=== PATIENT | male | born 1950 | race Caucasian/White ===

== ENCOUNTER 2017-08-08 18:59 | Emergency (ER) | payer OTHER ==
[~2017-08-08] VITALS: Ht 180.3 cm; Wt 80.0 kg
[~2017-08-08 18:59] MED LIST: CIPR500T4 PO; GLUC10TA3 PO; LISI10TA PO; MELO7.5T PO; METF-324 PO; OMPR20CCR PO; SIMV20 PO; TRAZ50TA4 PO
[2017-08-08 19:04] VITALS: BP 170/86; PULSE 87; RESP 16; TEMP 97.4; O2SAT 98
[2017-08-08] MEDS ORDERED: TRAZ50TA12 PO (20:14)
[2017-08-08] MEDS ORDERED: GLIP10TA6 PO (20:14)
[2017-08-08] MEDS ORDERED: SIMV20TA PO (20:14)
[2017-08-08] MEDS ORDERED: OMEP20TA PO (20:14)
[2017-08-08] MEDS ORDERED: LISI10TA PO (20:14)
[2017-08-08] MEDS ORDERED: METF-382 PO (20:14)
[2017-08-08] MEDS ORDERED: MOBI7.5T PO (20:14)
--- NOTE | 2017-08-08 20:30 | PD ---
HPI Chief Complaint: Hypertension Time Seen by Provider: 20:15 Travel History International Travel<30 days: No Contact w/Intl Traveler<30days: No Traveled to known affect area: No History of Present Illness HPI 67-year-old male with history of hypertension presents to the emergency department today for evaluation of hypertension. Patient states he did not take his medications morning. He slept all day and when he woke up at 6 PM, his blood pressure was with systolic greater than 200. He felt like he should come to the emergency department for evaluation of this. He did take 10 mg of Valium prior to arrival. At this time he denies any chest or tightness. No difficulty breathing. No headache, nausea, vomiting. He has no other symptoms to report. PFSH Past Medical History Anxiety: Yes Heart Rhythm Problems: Yes (HEART MURMUR (DX AT 14YO)) High Cholesterol: Yes Diabetes: Yes (TYPE II) Patient Takes Glucophage: No Diminished Hearing: No GERD: Yes Genitourinary: Yes Hypertension: Yes Musculoskeletal: Yes Respiratory: Yes (HX PNEUMONIA/ 90% SINUS BLOCKAGE) Pneumonia: Yes Sleep Apnea: Yes PNEUMOCCOCAL Vaccine (Year): 2 Past Surgical History Tonsillectomy: Yes Social History Alcohol Use: Yes (OCC) Tobacco Use: Yes (PPD) Substance Use: No Allergies-Medications (Allergen,Severity, Reaction): Coded Allergies: amitriptyline (Unverified Allergy, Severe, AMS, 08/08/17) cephalexin (Unverified Allergy, Severe, HIVES, 08/08/17) penicillin G (Unverified Allergy, Severe, LOC, 08/08/17) Reported Meds & Prescriptions Reported Meds & Active Scripts Active Reported Trazodone (Trazodone HCl) 50 Mg Tab 25 Mg PO DAILY Simvastatin 20 Mg Tab 20 Mg PO HS Omeprazole 20 Mg Tab 20 Mg PO DAILY Metformin ER (Metformin HCl) 1,000 Mg Omer 1,000 Mg PO BID With evening meal Mobic (Meloxicam) 7.5 Mg Tab 7.5 Mg PO DAILY Lisinopril-Hctz 10-12.5 Mg Tab 1 Tab PO DAILY Glipizide 10 Mg Tab 10 Mg PO BIDAC Take 30 minutes before a meal Review of Systems Except as stated in HPI: all other systems reviewed are Neg Physical Exam Narrative GENERAL: Well-nourished, well-developed male patient in no acute distress SKIN: Focused skin assessment warm/dry. HEAD: Normocephalic. EYES: No scleral icterus. No injection or drainage. NECK: Supple, trachea midline. No JVD or lymphadenopathy. CARDIOVASCULAR: Regular rate and rhythm 2/6 systolic murmur. RESPIRATORY: Breath sounds equal bilaterally. No accessory muscle use. GASTROINTESTINAL: Abdomen soft, non-tender, nondistended. MUSCULOSKELETAL: No cyanosis, or edema. BACK: Nontender without obvious deformity. No CVA tenderness. Data Data Last Documented VS Vital Signs Date Time Temp Pulse Resp B/P (MAP) Pulse Ox O2 Delivery O2 Flow Rate FiO2 08/08/17 20:45 08/08/17 19:04 97.4 87 16 98 Room Air MDM Medical Decision Making Medical Screen Exam Complete: Yes Emergency Medical Condition: Yes Medical Record Reviewed: Yes Differential Diagnosis Hypertension versus medication noncompliance versus kidney disease versus normal exam Narrative Course 67-year-old male presents to emergency department for evaluation of hypertension. Patient is hypertensive here, however it is not concerning. He is completely asymptomatic. He did not take his medication this morning which is likely the cause of his increase in pressure. He did take his dose just prior to arrival. Educated the patient on taking his medication as prescribed. I encouraged him to follow-up with his primary care provider. He agrees with this plan of care. Diagnosis Primary Impression: Hypertension Qualified Codes: I10 - Essential (primary) hypertension Referrals: Primary Care Physician Patient Instructions: Chronic Hypertension (DC), General Instructions Additional Instructions: It is important that you do not miss your medication as prescribed at 5 follow- up with a primary care provider Return immediately with any acute worsening of symptoms Med/Other Pt SpecificInfo: No Change to Meds Disposition: 01 DISCHARGE HOME Condition: Stable CalderonGini torres HEBERT Aug 08, 2017 20:30
== END 2017-08-08 20:48 | disposition home or self-care (01) ==
LOC: NEPK 18:59
DX: I10 Essential (primary) hypertension (principal); E11.9 Type 2 diabetes mellitus without complications; E78.00 Pure hypercholesterolemia, unspecified; G47.30 Sleep apnea, unspecified; Z72.0 Tobacco use; Z79.84 Long term (current) use of oral hypoglycemic drugs; Z86.79 Personal history of other diseases of the circulatory system; Z86.59 Personal history of other mental and behavioral disorders; Z87.19 Personal history of other diseases of the digestive system; Z87.448 Personal history of other diseases of urinary system; Z87.39 Personal history of other diseases of the musculoskeletal system and connective tissue; Z87.09 Personal history of other diseases of the respiratory system
CPT/HCPCS: 99281

== ENCOUNTER 2018-02-16 13:12 | Emergency (ER) | payer OTHER ==
[~2018-02-16] VITALS: Ht 180.3 cm; Wt 80.0 kg
[~2018-02-16 13:12] MED LIST changes: -CIPR500T4 PO; +GLIP10TA6 PO; -GLUC10TA3 PO; -MELO7.5T PO; -METF-324 PO; +METF-382 PO; +MOBI7.5T PO; +OMEP20TA93 PO; -OMPR20CCR PO; -SIMV20 PO; +SIMV20TA PO; +TRAZ50TA12 PO; -TRAZ50TA4 PO
[2018-02-16 13:20] VITALS: BP 169/74; PULSE 74; RESP 16; TEMP 97.3; O2SAT 98
--- NOTE | 2018-02-16 15:14 | PD ---
HPI Chief Complaint: Pain: Acute or Chronic Time Seen by Provider: 15:09 Travel History International Travel<30 days: No Contact w/Intl Traveler<30days: No Traveled to known affect area: No History of Present Illness HPI 68-year-old male with PMH of DM presents to the ED for evaluation of 5 day history of right leg pain. Sudden onset while the patient was standing. He can identify no acute injury or recent overuse. Pain is rated 6/10, described as throbbing on the inner and anterior aspect of the leg. No alleviating or exacerbating factors reported. Patient denies history of blood clots. He does not take blood thinners. He is followed by the [facility] Past Medical History Anxiety: Yes Heart Rhythm Problems: Yes (HEART MURMUR (DX AT 14YO)) High Cholesterol: Yes Diabetes: Yes Diminished Hearing: No GERD: Yes Genitourinary: Yes Hypertension: Yes Musculoskeletal: Yes Respiratory: Yes (HX PNEUMONIA/ 90% SINUS BLOCKAGE) Pneumonia: Yes Sleep Apnea: Yes PNEUMOCCOCAL Vaccine (Year): 2 Past Surgical History Tonsillectomy: Yes Social History Alcohol Use: Yes (OCC) Tobacco Use: Yes (PPD) Substance Use: No Allergies-Medications (Allergen,Severity, Reaction): Coded Allergies: amitriptyline (Unverified Allergy, Severe, AMS, 08/08/17) cephalexin (Unverified Allergy, Severe, HIVES, 08/08/17) penicillin G (Unverified Allergy, Severe, LOC, 08/08/17) Reported Meds & Prescriptions Reported Meds & Active Scripts Active Reported Trazodone (Trazodone HCl) 50 Mg Tab 25 Mg PO DAILY Simvastatin 20 Mg Tab 20 Mg PO HS Omeprazole 20 Mg Tab 20 Mg PO DAILY Metformin ER (Metformin HCl) 1,000 Mg Omer 1,000 Mg PO BID With evening meal Mobic (Meloxicam) 7.5 Mg Tab 7.5 Mg PO DAILY Lisinopril-Hctz 10-12.5 Mg Tab 1 Tab PO DAILY Glipizide 10 Mg Tab 10 Mg PO BIDAC Take 30 minutes before a meal Review of Systems Except as stated in HPI: all other systems reviewed are Neg Physical Exam Narrative GENERAL: Well-nourished, well-developed white male in no acute distress. SKIN: Focused skin assessment warm/dry. HEAD: Normocephalic. EYES: No scleral icterus. No injection or drainage. Pupils pinpoint bilaterally. NECK: Supple, trachea midline. No JVD or lymphadenopathy. CARDIOVASCULAR: Regular rate and rhythm without murmurs, gallops, or rubs. RESPIRATORY: Breath sounds equal bilaterally. No accessory muscle use. GASTROINTESTINAL: Abdomen soft, non-tender, nondistended. MUSCULOSKELETAL: No cyanosis, or edema. FOCUSED RIGHT LOWER EXTREMITY EXAM: 2+ DP pulse. Homans sign positive. Multiple varicose veins noted in the area of tenderness. Tender to palpation on the inner and posterior aspect of the thigh. No ropey induration noted. Patient retains full, active, painless ROM of the extremity. Neurovascularly intact distally. BACK: Nontender without obvious deformity. No CVA tenderness. Data Data Last Documented VS Vital Signs Date Time Temp Pulse Resp B/P (MAP) Pulse Ox O2 Delivery O2 Flow Rate FiO2 02/16/18 13:20 97.3 74 16 169/74 (105) 98 Orders Orders Ice/Cold Pack (02/16/18 15:06) Us Leg Venous Doppler (02/16/18 15:12) Tramadol (Ultram) (02/16/18 17:00) Ed Discharge Order (02/16/18 17:16) [facility] Medical Decision Making Medical Screen Exam Complete: Yes Emergency Medical Condition: Yes Differential Diagnosis Thrombophlebitis versus DVT versus muscle strain versus musculoskeletal pain versus other Narrative Course 68-year-old male with PMH of DM presents to the ED for evaluation of 5 day history of right leg pain. Sudden onset while the patient was standing. He can identify no acute injury or recent overuse. Pain is rated 6/10, described as throbbing on the inner and anterior aspect of the leg. Patient denies history of blood clots. He does not take blood thinners. [facility]. Focused exam of the right lower extremity reveals 2+ DP pulse. Homans sign positive. Tender to palpation on the inner and posterior aspect of the thigh. Multiple varicose veins noted. No ropey induration noted. Patient retains full, active, painless ROM of the extremity. Neurovascularly intact distally. Ultrasound of the legs reveals no evidence of DVT. On recheck the patient states that his chronic back pain is acting up and requests pain medications. I offered him tramadol, he refused. I suspect this is thrombophlebitis, less likely a muscle strain. Either way, I feel the patient is safe [facility]. He is stable and discharged home. Diagnosis Primary Impression: Musculoskeletal pain of right lower extremity Referrals: Orthopedist Additional Instructions: Rest, ice, elevate the extremity. Apply ice no longer than 10-15 minutes per hour a few times a day. OTC pain medications as prescribed on the label, as needed for pain. Return to normal, gentle activity as tolerated. No running, jumping activities for the next few weeks. Follow up with orthopedist. They may recommend outpatient MRI studies. Return to the ED for any urgent or emergent medical condition. Disposition: 01 DISCHARGE HOME Condition: Stable Laurel Perez Feb 16, 2018 15:14
[2018-02-16] MEDS ORDERED: traMADol HCL 50 MG TAB PO ONE (17:00)
--- NOTE | 2018-02-16 17:12 | RADRPT ---
EXAM DATE/TIME: 02/16/2018 15:50 [facility] COMPARISON: No previous studies available for comparison. INDICATIONS : Right leg pain. MEDICAL HISTORY : Hypertension. Hypercholesterolemia. Gastroesophageal reflux disease. Syncope. Heart murmur. Diabet es. Anxiety. Prostatitis. Chronic back pain. SURGICAL HISTORY : Tonsillectomy. Right knee cartilage surgery. ENCOUNTER: Initial ACUITY: 4 - 6 days PAIN SCORE: 3/10 LOCATION: Right leg. TECHNIQUE: Venous ultrasound of the leg was performed from the inguinal ligament to the proximal calf. Real-janet e, color Doppler and spectral tracing, compression and augmentation techniques were used. FINDINGS: There is normal compressibility of the deep venous system from the inguinal region to the proximal ca lf. No echogenic clot is seen in the lumen of the common femoral, femoral, popliteal, and posterior tibial veins. There is a normal response of the venous system to proximal and distal augmentation an d respiration. CONCLUSION: 1. No DVT identified within the right lower extremity. Gwyn Davila MD on February 16, 2018 at 17:09 Board Certified Radiologist. This report was verified electronically.
== END 2018-02-16 17:30 | disposition home or self-care (01) ==
LOC: NEPK 13:12
DX: M79.604 Pain in right leg (principal); G89.29 Other chronic pain; M54.9 Dorsalgia, unspecified; I10 Essential (primary) hypertension; E78.00 Pure hypercholesterolemia, unspecified; E11.9 Type 2 diabetes mellitus without complications; F41.9 Anxiety disorder, unspecified; F17.210 Nicotine dependence, cigarettes, uncomplicated; Z88.0 Allergy status to penicillin; Z79.84 Long term (current) use of oral hypoglycemic drugs; Z79.899 Other long term (current) drug therapy
CPT/HCPCS: 93971; 99284

== ENCOUNTER 2018-02-23 15:16 | Emergency (ER) | payer OTHER ==
[2018-02-23 15:39] VITALS: BP 171/74; PULSE 77; RESP 18; TEMP 98.7; O2SAT 97
--- NOTE | 2018-02-23 16:06 | PD ---
HPI Chief Complaint: Pain: Acute or Chronic Time Seen by Provider: 15:53 Travel History International Travel<30 days: No Contact w/Intl Traveler<30days: No Traveled to known affect area: No History of Present Illness HPI This is a 68-year-old male who presents for evaluation of lower back pain as well as right leg pain. He reports that he has chronic back pain from a "permanent back injury" several years ago. He does not recall specifically what he was diagnosed with. He reports that he follows at the [facility] and he is not currently prescribed any pain medicine. He denies any acute injury to his back. He reports that the pain is the way that it has been for years. It is an aching pain in his lower back that is worse with movement. Denies any bowel or bladder incontinence or saddle anesthesia, abdominal pain, flank pain, testicular scrotal pain. In addition the patient is complaining of right lower leg pain which started 10 days ago. He does not recall any specific injury. The pain is primarily in the right knee, tibia/fibular region and it is worse when walking. He was seen here about this issue 1 week ago and had an ultrasound of the right lower extremity which was negative. The pain has persisted. He reports that he has been using Percocet from a friend which he has now run out of. He is not using any other medication for symptom relief. He has no other complaints at this time. PFSH Past Medical History Anxiety: Yes Heart Rhythm Problems: Yes (HEART MURMUR (DX AT 14YO)) High Cholesterol: Yes Diabetes: Yes Diminished Hearing: No GERD: Yes Genitourinary: Yes Hypertension: Yes Musculoskeletal: Yes Respiratory: Yes (HX PNEUMONIA/ 90% SINUS BLOCKAGE) Pneumonia: Yes Sleep Apnea: Yes PNEUMOCCOCAL Vaccine (Year): 2 Past Surgical History Tonsillectomy: Yes Social History Alcohol Use: Yes (OCC) Tobacco Use: Yes (PPD) Substance Use: No Allergies-Medications (Allergen,Severity, Reaction): Coded Allergies: amitriptyline (Unverified Allergy, Severe, AMS, 02/23/18) cephalexin (Unverified Allergy, Severe, HIVES, 02/23/18) penicillin G (Unverified Allergy, Severe, LOC, 02/23/18) Reported Meds & Prescriptions Reported Meds & Active Scripts Active Baclofen 10 Mg Tab 10 Mg PO Q8HR [address] (Diclofenac Sodium) 75 Mg Tabdr 75 Mg PO BID 10 Days Reported Simvastatin 20 Mg Tab 20 Mg PO HS Omeprazole 20 Mg Tab 20 Mg PO DAILY Metformin ER (Metformin HCl) 1,000 Mg Omer 1,000 Mg PO BID With evening meal Lisinopril-Hctz 10-12.5 Mg Tab 1 Tab PO DAILY Glipizide 10 Mg Tab 10 Mg PO BIDAC Take 30 minutes before a meal Review of Systems Except as stated in HPI: all other systems reviewed are Neg Physical Exam Narrative GENERAL: Well-developed well-nourished male in no acute distress. He is noted to be ambulatory and standing during his hospital stay several times and seems to prefer it to lying down. SKIN: Warm and dry. There is some ecchymosis noted to the right foot. HEAD: Atraumatic. Normocephalic. CARDIOVASCULAR: Regular rate and rhythm. No murmur appreciated. RESPIRATORY: No accessory muscle use. Clear to auscultation. Breath sounds equal bilaterally. GASTROINTESTINAL: Abdomen soft, non-tender, nondistended. Hepatic and splenic margins not palpable. MUSCULOSKELETAL: Skin as noted above. There is some tenderness to palpation of the right calf, fibula, ankle. There is pain with dorsi and plantar flexion of the right ankle. There is no tenderness to palpation the right knee joint. The patient has no pain with flexion and extension of the right knee joint. There is no obvious laxity on anterior posterior stress of the right knee. The Achilles tendon is intact and nontender. 2+ dorsalis pedis pulse bilaterally. NEUROLOGICAL: Awake and alert. No obvious cranial nerve deficits. Motor grossly within normal limits. Normal speech. Data Data Last Documented VS Vital Signs Date Time Temp Pulse Resp B/P (MAP) Pulse Ox O2 Delivery O2 Flow Rate FiO2 02/23/18 15:39 98.7 77 18 171/74 (106) 97 Orders Orders Tibia/Fibula (Ap/Lat) (02/23/18 ) Foot, Complete ([id number]) (02/23/18 ) Ed Discharge Order (02/23/18 16:55) MDM Medical Decision Making Medical Screen Exam Complete: Yes Emergency Medical Condition: Yes Medical Record Reviewed: Yes Differential Diagnosis Right ankle sprain, calf tear, fibular fracture Chronic lower back pain, degenerative disc disease, spinal stenosis, herniated nucleus pulposus, compression fracture Narrative Course Because of the finding of ecchymosis on the right foot, right tibia-fibula and foot x-rays have been ordered. Reassuringly he had an ultrasound of the right lower extremity which was negative for DVT 1 week ago. X-ray imaging of the right tibia-fibula and right foot have been reviewed and found to be unremarkable. The patient has been ambulatory for 75% of his hospital stay. He will be discharged with a short course of NSAIDs and muscle relaxants. He is encouraged to follow-up with his primary care physician to discuss pain management referral for his chronic lower back pain. He seems agreeable to this plan. Diagnosis Primary Impression: Chronic lower back pain Additional Impression: Right leg pain Additional Instructions: Medication as needed. Do not drive or drink alcohol and taking baclofen. Avoid strenuous activity. Follow-up with your primary care physician to discuss possible pain management or physical therapy referral. Return for any emergent medical conditions. Med/Other Pt SpecificInfo: Prescription(s) given Scripts Baclofen (Baclofen) 10 Mg Tab 10 MG PO Q8HR for 10 Days, TAB 0 Refills Prov: Michael Herman MD 02/23/[address] (Diclofenac Sodium DR) 75 Mg Tabdr 75 MG PO BID for 10 Days, #20 TAB 0 Refills Prov: Michael Herman MD 02/23/18 Disposition: 01 DISCHARGE HOME Condition: Stable Ken Shirley Feb 23, 2018 16:06
--- NOTE | 2018-02-23 16:47 | RADRPT ---
EXAM DATE/TIME: 02/23/2018 16:29 [facility] COMPARISON: No previous studies available for comparison. INDICATIONS : Right lower leg pain and swelling. No known injury. MEDICAL HISTORY : Hypertension. Hypercholesterolemia. Gastroesophageal reflux disease. SURGICAL HISTORY : Tonsillectomy. Right knee cartilage surgery. ENCOUNTER: Initial ACUITY: 1 week PAIN SCORE: 5/10 LOCATION: Right lower leg. FINDINGS: Two view examination of the right tibia demonstrates no evidence of fracture or dislocation. Bony mi neralization is normal. Prominent atherosclerotic vascular calcification. CONCLUSION: No acute bony findings Erick Jules MD on February 23, 2018 at 16:44 Board Certified Radiologist. This report was verified electronically.
--- NOTE | 2018-02-23 16:48 | RADRPT ---
EXAM DATE/TIME: 02/23/2018 16:30 [facility] COMPARISON: No previous studies available for comparison. INDICATIONS : Right foor pain and swelling. No known injury. Brusing around 2nd,3rd and 4th digits. MEDICAL HISTORY : Hypertension. Hypercholesterolemia. Gastroesophageal reflux disease. SURGICAL HISTORY : Tonsillectomy. Right knee cartilage surgery. ENCOUNTER: Initial ACUITY: 1 week PAIN SCORE: 5/10 LOCATION: Right foot. FINDINGS: Three view examination of the right foot demonstrates no soft tissue swelling, dislocation, or fractu re. The tarsal bones appear intact. The interphalangeal and metatarsophalangeal joints are intact. The calcaneus is intact. Bony mineralization is normal. CONCLUSION: Unremarkable examination of the right foot. Erick Jules MD on February 23, 2018 at 16:45 Board Certified Radiologist. This report was verified electronically.
[2018-02-23] MEDS ORDERED: BACL10TA PO (16:56)
[2018-02-23] MEDS ORDERED: DICL75TA PO (16:56)
== END 2018-02-23 17:20 | disposition home or self-care (01) ==
LOC: NEPD 15:16
DX: M54.5 Low back pain (principal); G89.29 Other chronic pain; M79.661 Pain in right lower leg; I10 Essential (primary) hypertension; E78.00 Pure hypercholesterolemia, unspecified; E11.9 Type 2 diabetes mellitus without complications; F41.9 Anxiety disorder, unspecified; F17.210 Nicotine dependence, cigarettes, uncomplicated; Z88.0 Allergy status to penicillin; Z79.84 Long term (current) use of oral hypoglycemic drugs; Z79.899 Other long term (current) drug therapy
CPT/HCPCS: 73590; 73630; 99283

== ENCOUNTER 2018-08-17 12:11 | Inpatient (IN) ==
[2018-08-17] MEDS ORDERED: ASP: Documented allergy to Penicillins or Cephalosporins OTHER PRN (13:00)
[2018-08-17] MEDS ORDERED: Clindamycin 900 mg/NS Premix 900 MG/50 ML PIGGYBACK IV.SIG ONE (13:00)
[2018-08-17] MEDS ORDERED: Meropenem Inj 2,000 MG in Sodium Chlor 0.9% Inj 100 ML IV.SIG STA (13:00)
[2018-08-17] MEDS ORDERED: Vancomycin Inj 1,500 MG in Sodium Chlor 0.9% Inj 500 ML IV.SIG ONE (13:00)
[2018-08-17] MEDS ORDERED: HYDROmorphone PF Inj 1 MG/ML Ampul IV.PUSH ONE (13:01)
--- NOTE | 2018-08-17 13:04 | ED ---
HPI General Chief complaint: Urogenital-Male Stated complaint: Time Seen by Provider: 08/17/18 12:44 History of Present Illness HPI narrative: 68-year-old male with a history of hypertension, diabetes and chronic back pain presents to the emergency department for evaluation of scrotal swelling and pain in for the past 4 days. Patient states he was seen by his PCP 2 days ago and prescribed Levaquin which she has been taking since then. States that the swelling has worsened despite being on the antibiotics. States that he has a small ulceration on the right scrotum and then has noted some drainage from the inferior aspect of the scrotum. He denies any fever, chills, nausea, vomiting, abdominal pain, burning with urination, painful urination. He does note that his blood sugar has been poorly controlled recently, fasting was in the 200s this morning. He admits to snorting heroin last night, states that he uses street drugs regularly for pain control. He denies ever using IV drugs, denies any other drug use. No other complaints or concerns. Related Data Home Medications Medication Instructions Recorded Confirmed insulin glargine [Lantus U-100 40 unit SUBCUT DAILY 08/17/18 08/17/18 Insulin] levofloxacin 500 mg PO DAILY 08/17/18 08/17/18 Allergies Allergy/AdvReac Type Severity Reaction Status Date / Time amitriptyline Allergy Severe AMS Verified 08/17/18 13:27 cephalexin Allergy Severe HIVES Verified 08/17/18 13:27 penicillin G Allergy Severe LOC Verified 08/17/18 13:27 Review of Systems ROS: all other systems reviewed are negative PMFSH Family History Family History Other Family history normal Social History Social History Substance History: No History of Abuse and Active Abuse Second Hand Smoke Exposure: Yes Smoking Status: Current some day smoker Tobacco Type: Cigarettes How Often Do You Have a Drink Containing Alcohol: Monthly or less Recent Travel in [facility] within the Last 8 Weeks: No Recent Out of Country Travel within the Last 8 Weeks: No Immunization History Tetanus Immunization: Unsure Exam Narrative Exam Narrative: GENERAL: Well-nourished and well-developed male patient in no acute distress who is nontoxic appearing. SKIN: Warm and dry. HEAD: Normocephalic and atraumatic. EYES: No injection, drainage, or hyphema noted. PERRLA. EOMI. ENT: No nasal drainage noted. Oropharynx is clear. NECK: Supple and the trachea is midline. CARDIOVASCULAR: Regular rate and rhythm. RESPIRATORY: Breath sounds are equal bilaterally with no accessory muscle use, wheezing, rhonchi, or crackles. GASTROINTESTINAL: Abdomen is soft, non-tender, and nondistended. GENITOURINARY: Circumcised. Scrotum is swollen and erythematous bilaterally with 1 cm ulcer to right anterior scrotum. There is induration and tenderness to inferior aspect of scrotum extending to perineum. Testes descended bilaterally without evidence of rotation. No lesions or erythema. No urethral discharge. MUSCULOSKELETAL: No obvious deformities, swelling, cyanosis, or ecchymosis is present throughout the upper and lower extremities. Patient has full range of motion without any signs of neurovascular compromise. Distal pulses are 2+ throughout. NEUROLOGICAL: Awake, alert, and oriented. Normal speech and gait. Cranial nerves are grossly intact. Course Initial Documented Vital Signs Temperature 97.4 F L 08/17/18 12:29 Pulse Rate 76 08/17/18 12:29 Respiratory Rate 20 08/17/18 12:29 Blood Pressure 160/71 H 08/17/18 12:29 Pulse Oximetry 97 08/17/18 12:29 Last Documented Vital Signs Temperature 98.1 F 08/18/18 00:00 Pulse Rate 54 L 08/18/18 00:00 Respiratory Rate 16 08/18/18 00:00 Blood Pressure 154/67 H 08/18/18 00:00 Pulse Oximetry 97 08/18/18 00:00 Medical Decision Making GRADY Attestation GRADY supervised visit: Yes Attestation: I, Dr. Eid, have reviewed the advance practice practitioner's documentation and am in agreement, met with the patient face to face, made the diagnosis, and the medical decision making was done by me. *My assessment and Findings: Patient has scrotal cellulitis with no Miko's gangrene however the patient has diabetes and is on antibiotics currently, oral antibiotics at home, and overnight developed a fairly mild cellulitis according to story to something severe which is what we see today. Imaging is reassuring at this point showing no sign of Miko's gangrene/necrotizing fasciitis. There is no crepitus on exam. There is no fluctuance on exam. Hospitalist service notified. Patient will be admitted for ongoing antibiotics, meropenem, Vanco clindamycin started. The patient is not n.p.o. and can treat hyperglycemia with diet. There is no evidence of hypoglycemia neurologically. [facility] Narrative Medical decision making narrative: 68-year-old male presents to the emergency department for evaluation of scrotal swelling and pain. Patient is afebrile, vital signs are stable. He does have what appears to be cellulitis with possible abscess formation. IV access is obtained, labs of been drawn and sent. Patient is placed on cardiac telemetry and pulse oximetry monitoring. Ultrasound imaging of the scrotum has been ordered and is pending. CT of abdomen and pelvis has also been ordered and is pending. Patient administered IV Clindamycin, Merepenem, and Vancomycin. CBC shows slightly elevated white blood cell count and mild anemia, otherwise unremarkable. CMP shows hyperglycemia, otherwise unremarkable. Lactic acid is unremarkable. Ultrasound of the scrotum shows diffuse nonspecific edema versus thickening involving the scrotal wall of the scrotum, small bilateral hydroceles, small left epididymal cyst 9 mm, both testicles are grossly within normal limits. CT of the abdomen and pelvis per radiology read shows mild nonspecific infiltrate in the posterior left lower lung, tiny 2 mm left kidney stone, otherwise unremarkable. Patient will be admitted for IV antibiotics due to failed outpatient therapy. My attending physician Dr. Eid spoke with Dr. Nieves [facility] who accepted the patient to their service. Medical Screen Exam Complete: Yes Emergency Medical Condition: Yes Differential Diagnosis Differential Diagnosis: Scrotal abscess versus Miko's gangrene versus sepsis versus failed outpatient therapy Lab Data Result diagrams: 08/18/18 05:00 08/18/18 05:00 Lab Results 08/17/18 08/17/18 08/17/18 Range/Units 13:30 13:30 13:30 WBC 11.1 H (4.0-11.0) th/mm3 RBC 3.94 L (4.50-5.90) mil/mm3 Hgb 12.4 L (13.0-17.0) gm/dL Hct 36.8 L (39.0-51.0) % MCV 93.3 (80.0-100.0) fL MCH 31.5 (27.0-34.0) pg MCHC 33.8 (32.0-36.0) % RDW 13.1 (11.6-17.2) % Plt Count 227 (150-450) th/mm3 MPV 8.2 (7.0-11.0) fL Neut % (Auto) 86.7 H (16.0-70.0) % Lymph % (Auto) 4.5 L (9.0-44.0) % [place] % (Auto) 7.8 (0.0-8.0) % Eos % (Auto) 0.5 (0.0-4.0) % Baso % (Auto) 0.5 (0.0-2.0) % Neut # (Auto) 9.6 H (1.8-7.7) th/mm3 Lymph # (Auto) 0.5 L (1.0-4.8) th/mm3 [place] # (Auto) 0.9 (0.0-0.9) th/mm3 Eos # (Auto) 0.1 (0.0-0.4) th/mm3 Baso # (Auto) 0.1 (0.0-0.2) th/mm3 WBC Differential . Differential Comment Auto diff final Sodium 133 L (136-145) meq/L Potassium 3.9 (3.5-5.1) meq/L Chloride 96 L (98-107) meq/L Carbon Dioxide 28.7 (21.0-32.0) meq/L Anion Gap 8 (5-15) meq/L BUN 11 (7-18) mg/dL Creatinine 0.86 (0.60-1.30) mg/dL Estimated GFR 89 (>89) mL/min POC Glucose (68-110) mg/dl Random Glucose 338 H (74-106) mg/dL Lactic Acid 1.9 (0.4-2.0) mmol/L Calcium 8.8 (8.5-10.1) mg/dL Iron (65-175) mcg/dL TIBC (250-450) mcg/dL % Saturation (20-50) % Total Bilirubin 0.9 (0.2-1.0) mg/dL AST 24 (15-37) U/L ALT 35 (12-78) U/L Alkaline Phosphatase 88 (45-117) U/L C-Reactive Protein (0.00-0.30) mg/dL B-Natriuretic Peptide (0-100) pg/mL Total Protein 6.4 (6.4-8.2) g/dL Albumin 3.0 L (3.4-5.0) g/dL Triglycerides (42-150) mg/dL Cholesterol (120-200) mg/dL LDL Cholesterol, Calc (0-99) mg/dL HDL Cholesterol (40.0-60.0) mg/dL Cholesterol/HDL Ratio Ratio Urine Color (Yellw/Straw) Urine Clarity (Clear) Urine pH (5.0-8.5) Ur Specific [place] (1.002-1.035) Urine Protein (Neg-Trace) mg/dL Urine Glucose (UA) (Negative) mg/dL Urine Ketones (Negative) mg/dL Urine Occult Blood (Negative) Urine Nitrate (Negative) Urine Bilirubin (Negative) Urine Urobilinogen (Less than 2) mg/dL Ur Leukocyte Esterase (Negative) Urine RBC (0-3) /hpf Urine WBC (0-5) /hpf Micro UA Comment Ur Microscopic Review Urine Culture Comments Urine Opiates Screen (Neg) Ur Barbiturates Screen (Neg) Ur Amphetamines Screen (Neg) U Benzodiazepines Scrn (Neg) Urine Cocaine Screen (Neg) U Cannabinoids Screen (Neg) 08/17/18 08/17/18 08/17/18 Range/Units 13:30 14:43 17:26 WBC (4.0-11.0) th/mm3 RBC (4.50-5.90) mil/mm3 Hgb (13.0-17.0) gm/dL Hct (39.0-51.0) % MCV (80.0-100.0) fL MCH (27.0-34.0) pg MCHC (32.0-36.0) % RDW (11.6-17.2) % Plt Count (150-450) th/mm3 MPV (7.0-11.0) fL Neut % (Auto) (16.0-70.0) % Lymph % (Auto) (9.0-44.0) % [place]aver % (Auto) (0.0-8.0) % Eos % (Auto) (0.0-4.0) % Baso % (Auto) (0.0-2.0) % Neut # (Auto) (1.8-7.7) th/mm3 Lymph # (Auto) (1.0-4.8) th/mm3 [place] # (Auto) (0.0-0.9) th/mm3 Eos # (Auto) (0.0-0.4) th/mm3 Baso # (Auto) (0.0-0.2) th/mm3 WBC Differential Differential Comment Sodium (136-145) meq/L Potassium (3.5-5.1) meq/L Chloride (98-107) meq/L Carbon Dioxide (21.0-32.0) meq/L Anion Gap (5-15) meq/L BUN (7-18) mg/dL Creatinine (0.60-1.30) mg/dL Estimated GFR (>89) mL/min POC Glucose 200 H (68-110) mg/dl Random Glucose (74-106) mg/dL Lactic Acid (0.4-2.0) mmol/L Calcium (8.5-10.1) mg/dL Iron (65-175) mcg/dL TIBC (250-450) mcg/dL % Saturation (20-50) % Total Bilirubin (0.2-1.0) mg/dL AST (15-37) U/L ALT (12-78) U/L Alkaline Phosphatase (45-117) U/L C-Reactive Protein (0.00-0.30) mg/dL B-Natriuretic Peptide 53 (0-100) pg/mL Total Protein (6.4-8.2) g/dL Albumin (3.4-5.0) g/dL Triglycerides (42-150) mg/dL Cholesterol (120-200) mg/dL LDL Cholesterol, Calc (0-99) mg/dL HDL Cholesterol (40.0-60.0) mg/dL Cholesterol/HDL Ratio Ratio Urine Color Yellow (Yellw/Straw) Urine Clarity Clear (Clear) Urine pH 7.0 (5.0-8.5) Ur Specific [place] 1.025 (1.002-1.035) Urine Protein Negative (Neg-Trace) mg/dL Urine Glucose (UA) 500 or greater (Negative) mg/dL Urine Ketones Negative (Negative) mg/dL Urine Occult Blood Negative (Negative) Urine Nitrate Negative (Negative) Urine Bilirubin Negative (Negative) Urine Urobilinogen Less than 2 (Less than 2) mg/dL Ur Leukocyte Esterase Negative (Negative) Urine RBC Less than 1 (0-3) /hpf Urine WBC Less than 1 (0-5) /hpf Micro UA Comment Culture not ind Ur Microscopic Review Not Reportable Urine Culture Comments Culture not ind Urine Opiates Screen (Neg) Ur Barbiturates Screen (Neg) Ur Amphetamines Screen (Neg) U Benzodiazepines Scrn (Neg) Urine Cocaine Screen (Neg) U Cannabinoids Screen (Neg) 08/17/18 08/18/18 08/18/18 Range/Units 19:17 00:15 05:00 WBC 9.9 (4.0-11.0) th/mm3 RBC 3.93 L (4.50-5.90) mil/mm3 Hgb 12.4 L (13.0-17.0) gm/dL Hct 36.1 L (39.0-51.0) % MCV 92.0 (80.0-100.0) fL MCH 31.5 (27.0-34.0) pg MCHC 34.3 (32.0-36.0) % RDW 12.8 (11.6-17.2) % Plt Count 245 (150-450) th/mm3 MPV 8.6 (7.0-11.0) fL Neut % (Auto) 77.1 H (16.0-70.0) % Lymph % (Auto) 12.0 (9.0-44.0) % [place] % (Auto) 10.0 H (0.0-8.0) % Eos % (Auto) 0.6 (0.0-4.0) % Baso % (Auto) 0.3 (0.0-2.0) % Neut # (Auto) 7.6 (1.8-7.7) th/mm3 Lymph # (Auto) 1.2 (1.0-4.8) th/mm3 [place] # (Auto) 1.0 H (0.0-0.9) th/mm3 Eos # (Auto) 0.1 (0.0-0.4) th/mm3 Baso # (Auto) 0.0 (0.0-0.2) th/mm3 WBC Differential . Differential Comment Auto diff final Sodium (136-145) meq/L Potassium (3.5-5.1) meq/L Chloride (98-107) meq/L Carbon Dioxide (21.0-32.0) meq/L Anion Gap (5-15) meq/L BUN (7-18) mg/dL Creatinine (0.60-1.30) mg/dL Estimated GFR (>89) mL/min POC Glucose 229 H (68-110) mg/dl Random Glucose (74-106) mg/dL Lactic Acid (0.4-2.0) mmol/L Calcium (8.5-10.1) mg/dL Iron (65-175) mcg/dL TIBC (250-450) mcg/dL % Saturation (20-50) % Total Bilirubin (0.2-1.0) mg/dL AST (15-37) U/L ALT (12-78) U/L Alkaline Phosphatase (45-117) U/L C-Reactive Protein (0.00-0.30) mg/dL B-Natriuretic Peptide (0-100) pg/mL Total Protein (6.4-8.2) g/dL Albumin (3.4-5.0) g/dL Triglycerides (42-150) mg/dL Cholesterol (120-200) mg/dL LDL Cholesterol, Calc (0-99) mg/dL HDL Cholesterol (40.0-60.0) mg/dL Cholesterol/HDL Ratio Ratio Urine Color (Yellw/Straw) Urine Clarity (Clear) Urine pH (5.0-8.5) Ur Specific [place] (1.002-1.035) Urine Protein (Neg-Trace) mg/dL Urine Glucose (UA) (Negative) mg/dL Urine Ketones (Negative) mg/dL Urine Occult Blood (Negative) Urine Nitrate (Negative) Urine Bilirubin (Negative) Urine Urobilinogen (Less than 2) mg/dL Ur Leukocyte Esterase (Negative) Urine RBC (0-3) /hpf Urine WBC (0-5) /hpf Micro UA Comment Ur Microscopic Review Urine Culture Comments Urine Opiates Screen Pos H (Neg) Ur Barbiturates Screen Neg (Neg) Ur Amphetamines Screen Neg (Neg) U Benzodiazepines Scrn Neg (Neg) Urine Cocaine Screen Neg (Neg) U Cannabinoids Screen Neg (Neg) 08/18/18 08/18/18 08/18/18 Range/Units 05:00 06:40 07:04 WBC (4.0-11.0) th/mm3 RBC (4.50-5.90) mil/mm3 Hgb (13.0-17.0) gm/dL Hct (39.0-51.0) % MCV (80.0-100.0) fL MCH (27.0-34.0) pg MCHC (32.0-36.0) % RDW (11.6-17.2) % Plt Count (150-450) th/mm3 MPV (7.0-11.0) fL Neut % (Auto) (16.0-70.0) % Lymph % (Auto) (9.0-44.0) % [place] % (Auto) (0.0-8.0) % Eos % (Auto) (0.0-4.0) % Baso % (Auto) (0.0-2.0) % Neut # (Auto) (1.8-7.7) th/mm3 Lymph # (Auto) (1.0-4.8) th/mm3 [place] # (Auto) (0.0-0.9) th/mm3 Eos # (Auto) (0.0-0.4) th/mm3 Baso # (Auto) (0.0-0.2) th/mm3 WBC Differential Differential Comment Sodium 141 (136-145) meq/L Potassium 3.4 L (3.5-5.1) meq/L Chloride 102 (98-107) meq/L Carbon Dioxide 30.8 (21.0-32.0) meq/L Anion Gap 8 (5-15) meq/L BUN 8 (7-18) mg/dL Creatinine 0.69 (0.60-1.30) mg/dL Estimated GFR Greater than 89 (>89) mL/min POC Glucose 46 L* 82 (68-110) mg/dl Random Glucose 40 L* D (74-106) mg/dL Lactic Acid (0.4-2.0) mmol/L Calcium 8.8 (8.5-10.1) mg/dL Iron 29 L (65-175) mcg/dL TIBC 318 (250-450) mcg/dL % Saturation 9.1 L (20-50) % Total Bilirubin 0.8 (0.2-1.0) mg/dL AST 29 (15-37) U/L ALT 35 (12-78) U/L Alkaline Phosphatase 81 (45-117) U/L C-Reactive Protein 4.20 H (0.00-0.30) mg/dL B-Natriuretic Peptide (0-100) pg/mL Total Protein 6.5 (6.4-8.2) g/dL Albumin 2.9 L (3.4-5.0) g/dL Triglycerides 56 (42-150) mg/dL Cholesterol 87 L (120-200) mg/dL LDL Cholesterol, Calc 25 (0-99) mg/dL HDL Cholesterol 50.6 (40.0-60.0) mg/dL Cholesterol/HDL Ratio 1.71 Ratio Urine Color (Yellw/Straw) Urine Clarity (Clear) Urine pH (5.0-8.5) Ur Specific [place] (1.002-1.035) Urine Protein (Neg-Trace) mg/dL Urine Glucose (UA) (Negative) mg/dL Urine Ketones (Negative) mg/dL Urine Occult Blood (Negative) Urine Nitrate (Negative) Urine Bilirubin (Negative) Urine Urobilinogen (Less than 2) mg/dL Ur Leukocyte Esterase (Negative) Urine RBC (0-3) /hpf Urine WBC (0-5) /hpf Micro UA Comment Ur Microscopic Review Urine Culture Comments Urine Opiates Screen (Neg) Ur Barbiturates Screen (Neg) Ur Amphetamines Screen (Neg) U Benzodiazepines Scrn (Neg) Urine Cocaine Screen (Neg) U Cannabinoids Screen (Neg) Imaging Data Radiologist's impression: Scrotum Ultrasound 08/17/18 13:01 CONCLUSION: 1. Both testicles are grossly within normal limits. 2. Small left epididymal cyst measuring 9 mm. 3. Small bilateral hydroceles. 4. Diffuse nonspecific edema versus thickening involving the scrotal wall of the scrotum. Abdomen/Pelvis CT 08/17/18 13:05 CONCLUSION: 1. Mild nonspecific infiltrate in the posterior left lower lung. 2. Tiny 2 mm nonobstructing stone upper pole left kidney. 3. No acute abdominal or pelvic pathology. Discharge Plan Discharge Disposition Patient Disposition: 30 Still Patient Discharge Details Diagnosis: Cellulitis of scrotum Physicians Team ED Provider: Gwyn Eid ED Midlevel Provider: Irlanda Barrera Primary Care Provider: [facility]Physician 's Attending Provider: Noa Gomes Other Providers: Celestino Rivas ; Selena Strauss Status ED Status: Left Department Discharge Information Discharge Date/Time: 08/17/18 17:20
[2018-08-17] MEDS ORDERED: HYDROmorphone PF Inj 2 MG/ML Vial IV.PUSH ONE (13:30)
[2018-08-17 13:52] LABS: Baso # (Auto) 0.1 th/mm3 (0.0-0.2); Baso % (Auto) 0.5 % (0.0-2.0); Eos # (Auto) 0.1 th/mm3 (0.0-0.4); Eos % (Auto) 0.5 % (0.0-4.0); Hematocrit 36.8 % (39.0-51.0); Hemoglobin 12.4 gm/dL (13.0-17.0); Lymph # (Auto) 0.5 th/mm3 (1.0-4.8); Lymph % (Auto) 4.5 % (9.0-44.0); Mean Corpuscular HGB Conc 33.8 % (32.0-36.0); Mean Corpuscular Hemoglobin 31.5 pg (27.0-34.0); Mean Corpuscular Volume 93.3 fL (80.0-100.0); Mean Platelet Volume 8.2 fL (7.0-11.0); Mono # (Auto) 0.9 th/mm3 (0.0-0.9); Mono % (Auto) 7.8 % (0.0-8.0); Neut # (Auto) 9.6 th/mm3 (1.8-7.7); Neut % (Auto) 86.7 % (16.0-70.0); Platelet Count 227 th/mm3 (150-450); Red Blood Count 3.94 mil/mm3 (4.50-5.90); Red Cell Distribution Width 13.1 % (11.6-17.2); White Blood Count 11.1 th/mm3 (4.0-11.0)
[2018-08-17 14:18] LABS: Anion Gap 8 meq/L (5-15); Aspartate Aminotransferase 24 U/L (15-37); Blood Urea Nitrogen 11 mg/dL (7-18); Calcium 8.8 mg/dL (8.5-10.1); Carbon Dioxide 28.7 meq/L (21.0-32.0); Chloride 96 meq/L (98-107); Glomerular Filtration Rate 89 mL/min (>89); Glucose,Random 338 mg/dL (74-106); Potassium 3.9 meq/L (3.5-5.1); Sodium 133 meq/L (136-145)
[2018-08-17 14:20] LABS: Alanine Aminotransferase 35 U/L (12-78)
[2018-08-17 14:22] LABS: Alkaline Phosphatase 88 U/L (45-117); Total Protein 6.4 g/dL (6.4-8.2)
--- NOTE | 2018-08-17 14:31 | US ---
EXAM DATE: 08/17/2018 1:01 PM EDT AGE/SEX: 68 years / Male INDICATIONS: Enlarged testicles. CLINICAL DATA: This is the patient's initial encounter. Patient reports that signs and symptoms have been present for 4 - 6 days and indicates a pain score of 10/10. MEDICAL/SURGICAL HISTORY: . Hypertension. Hyperlipidemia. Type II diabetes. . Tonsillectomy. Right knee. COMPARISON: No prior exams available for comparison. MEASUREMENTS: Right Testicle:__4.2 x 2.8 x 2.5 cm Left Testicle:__4.2 x 3.1 x 2.5 x Surgically absent. FINDINGS: RIGHT: Testicle: Homogeneous echotexture without intra or extratesticular mass. Blood flow is symmetric and within normal limits. Epididymis: Within normal limits. Hydrocele: Small hydrocele present. Varicocele: No evidence of varicocele. LEFT: Testicle: Homogeneous echotexture without intra or extratesticular mass. Blood flow is symmetric and within normal limits. Epididymis: Small well-defined left epididymal cyst measuring approximately 9 mm x 8 mm. Hydrocele: Small hydrocele present. Varicocele: No evidence of varicocele. Scrotum: Diffuse thickening of scrotal skin. CONCLUSION: 1. Both testicles are grossly within normal limits. 2. Small left epididymal cyst measuring 9 mm. 3. Small bilateral hydroceles. 4. Diffuse nonspecific edema versus thickening involving the scrotal wall of the scrotum. Electronically signed by: Wilton Noguera MD 08/17/2018 2:30 PM EDT
--- NOTE | 2018-08-17 15:13 | CT ---
EXAM DATE: 08/17/2018 2:26 PM EDT AGE/SEX: 68 years / Male INDICATIONS: Diffuse abdomen pain and testicular swelling. CLINICAL DATA: This is the patient's initial encounter. Patient reports that signs and symptoms have been present for 1 day and indicates a pain score of 7/10. MEDICAL/SURGICAL HISTORY: Diabetes. Hypertension. . back surgery ORAL CONTRAST: No oral contrast ingested. RADIATION DOSE: 7.03 CTDI (mGy) COMPARISON: No prior exams available for comparison. TECHNIQUE: Multiple contiguous axial images were obtained through the abdomen and pelvis following b olus infusion of 95 ml Omnipaque 350 (iohexol) nonionic water-soluble contrast as a single exam dos e. No oral contrast ingested. Using automated exposure control and adjustment of the mA and/or kV ac cording to patient size, radiation dose was kept as low as reasonably achievable to obtain optimal di agnostic quality images. DICOM format image data is available electronically for review and comparis on. FINDINGS: Lower Lungs: Mild nonspecific infiltrate in the posterior left lower lung. There is some scarring in the right lung base. Liver: The liver has a homogeneous density without space-occupying lesion. There is no dilation of th e biliary tree. Gallbladder unremarkable. Spleen: Homogeneous density without enlargement. Pancreas: Unremarkable without mass or calcification. Kidneys: Normal in size and shape. No evidence of mass or hydronephrosis. Tiny 2 mm nonobstructing s tone upper pole left kidney. Adrenal Glands: Unremarkable. Aorta: Atherosclerotic changes. No aneurysmal dilatation. Bowel/Mesentery: The bowel loops are grossly unremarkable. The cecum and sigmoid colon have a normal configuration. No inflammatory changes are seen. There is stool throughout the colon. No free fluid or free air. A few scattered diverticula are seen along the sigmoid colon. Abdominal Wall: Intact. Retroperitoneum: No evidence of adenopathy in the retrocrural, para-aortic, or deep pelvic regions. Bladder: Contours are smooth. Reproductive Organs: No abnormal masses or calcifications seen. Inguinal: The inguinal region is unremarkable without evidence of adenopathy. Bony Structures: Primary bony degenerative changes. Chronic mild compression along the superior endp late of L1. CONCLUSION: 1. Mild nonspecific infiltrate in the posterior left lower lung. 2. Tiny 2 mm nonobstructing stone upper pole left kidney. 3. No acute abdominal or pelvic pathology. Electronically signed by: Wilton Noguera MD 08/17/2018 3:11 PM EDT
[2018-08-17 15:41] LABS: Bilirubin,Urine Negative (Negative); Color,Urine Yellow (Yellw/Straw); Glucose,Urine (UA) 500 or Greater mg/dL (Negative); Leukocyte Esterase,Urine Negative (Negative); Nitrite,Urine Negative (Negative); Specific Gravity,Urine 1.025 (1.002-1.035)
[2018-08-17 15:51] LABS: Clarity,Urine Clear (Clear)
[2018-08-17] MEDS ORDERED: Bisacodyl 10 MG Supp RECTAL PRN (16:15)
[2018-08-17] MEDS ORDERED: Dextrose 50% in Water 50 ML Vial IV.PUSH PRN (16:40)
[2018-08-17] MEDS ORDERED: Vancomycin Consult Pharmacy OTHER PRN (16:44)
--- NOTE | 2018-08-17 16:47 | P.HPIM ---
History of Present Illness Service: [facility] Primary Care Physician: [facility] Chief Complaint: testicular swelling History of Present Illness: This is a 68-year-old CM with a history of HTN, IDDM, and Chronic back pain who presents to the emergency department for evaluation of scrotal swelling and pain in for the past 4 days. Patient was seen by his PCP and Rx Levaquin for the cellulitis but reports worsening swelling since then. States that the swelling has worsened despite being on the antibiotics. Patient denies painful urination, hematuria, fever, chills, recent illness. Patient is a diabetic he is on insulin but reports that his last A1c was 8 over a year ago, he admits that he does not see his PCP regularly. Patient admits to snorting heroin last night, states that he uses street drugs regularly for pain control, denies IV drug use. - Diagnosis (1) Scrotal edema (2) Diabetes (3) Hypertension (4) Cellulitis of scrotum Inpatient Certification: I certify that the inpatient services were ordered in accordance with Medicare regulations governing the order. This includes certification that hospital inpatient services are reasonable and necessary and in the case of services not specified as inpatient-only under 42 CFR 419.22(n), that they are appropriately provided as inpatient services in accordance to with the 2-midnight benchmark under 43 CFR 412.3(e) Review of Systems All other systems reviewed negative except as stated in HPI PMFSH - History History Provided By: Patient - Medical History Medical History: Medical History (Last Reviewed 08/17/18 @ 16:51 by Maryjane Fuller MD) Back pain Diabetes HTN (hypertension) - Surgical History Surgical History: Surgical History (Last Reviewed 08/17/18 @ 16:51 by Maryjane Fuller MD) H/O knee surgery Previous back surgery - Family History Family History: Family History (Last Updated 08/17/18 @ 16:51 by Maryjane Fuller MD) Other Family history normal - Tobacco History Tobacco Use In Past 30 Days: Yes Smoking Status: Current some day smoker Tobacco Type: Cigarettes - Alcohol History How Often Do You Have a Drink Containing Alcohol: Monthly or less - Substance Use History Substance History: No History of Abuse, Active Abuse - Travel History Recent Travel in the [place] Within the Last 8 Weeks: No Recent Travel Out of the Country Within the Last 8 Weeks: No - Immunization History Tetanus Immunization: Unsure Medications and Allergies Active Medications: Active Medications Al Hydroxide/Mg Hydroxide (Milk Of Magnesia Liq) 30 ml PO Q12H PRN PRN Reason: Mild Constipation Bisacodyl (Dulcolax Supp) 10 mg RECTAL DAILY PRN PRN Reason: SEVERE CONSITIPATION Clonidine HCl (Catapres) 0.1 mg PO Q12HR PRN PRN Reason: HYPERTENSION Dextrose (D50w Vial) 50 ml IV.PUSH UNSCH PRN PRN Reason: PER HYPOGLYCEMIA PROTOCOL Glucagon (Glucagon Inj) 1 mg OTHER PRN PRN PRN Reason: for Hypoglycemia Protocol Insulin Human Regular (Novolin R Correctional Sugar Inj) 0 units SQ ACHS [place]; Protocol Lactulose (Lactulose Liq) 30 ml PO DAILY PRN PRN Reason: SEVERE CONSITIPATION Miscellaneous Medication (Asp Crit: Doc Allergy To Penicillin/Cephalosp) 1 each OTHER UNSCH PRN PRN Reason: PHARMACY DOCUMENTATION Stop: 08/18/18 12:59 Non-Formulary Medication (Insulin Glargine) 40 unit SQ DAILY [place] Senna/Docusate Sodium (Sandy-Colace) 1 tab PO BID [place] Sennosides (Senokot) 17.2 mg PO Q12H PRN PRN Reason: Moderate Constipation Allergies Allergy/AdvReac Type Severity Reaction Status Date / Time amitriptyline Allergy Severe AMS Verified 08/17/18 13:27 cephalexin Allergy Severe HIVES Verified 08/17/18 13:27 penicillin G Allergy Severe LOC Verified 08/17/18 13:27 Home Medications Medication Instructions Recorded Confirmed Type insulin glargine [Lantus U-100 40 unit SUBCUT DAILY 08/17/18 08/17/18 History Insulin] levofloxacin 500 mg PO DAILY 08/17/18 08/17/18 History Exam Vital signs: Vital Signs 08/17/18 12:29 08/17/18 12:48 08/17/18 14:33 Temperature 97.4 F L Pulse Rate 76 75 58 L Respiratory Rate 20 17 18 Blood Pressure 160/71 H 166/79 H 167/71 H Pulse Oximetry 97 99 98 Intake & Output 08/16/18 08/17/18 08/17/18 18:59 06:59 18:59 Intake Total 150 / 150 Balance 150 / 150 Weight 74.389 kg Intake: IV 150 / 150 Cleocin 900 mg/NS Premix 900 mg 50 / 50 In 50 ml @ 100 mls/hr IV.SIG ONCE ONE Rx#:[id number] Merrem Inj 2,000 MG In NS Inj 100 / 100 100 ML @ 200 mls/hr IV.SIG ONCE STA Rx#:[id number] Narrative: GENERAL: Well-nourished male, lying comfortably, in no acute distress SKIN: Warm and dry. See scrotal exam. HEAD: Normocephalic. No scleral icterus. No injection or drainage. PERRLA. MOM. NECK: Supple, trachea midline. No JVD or lymphadenopathy. CARDIOVASCULAR: Regular rate and rhythm without murmurs, gallops, or rubs. RESPIRATORY: Breath sounds equal bilaterally. No accessory muscle use. GASTROINTESTINAL: Abdomen soft, non-tender, nondistended. MUSCULOSKELETAL: No cyanosis, or edema. : Significant scrotal edema, scaling of the skin over the left testicle. Small ulcer on the right testicle, with clear drainage from site (ulcer nontender). Penis circumcised. BACK: Nontender without obvious deformity. No CVA tenderness. NEURO: AAox3, pleasant, motor systems 5/5 Results - Labs CBC & Chem 7: 08/17/18 13:30 08/17/18 13:30 Labs: Short CBC 08/17/18 Range/Units 13:30 WBC 11.1 H (4.0-11.0) th/mm3 Hgb 12.4 L (13.0-17.0) gm/dL Hct 36.8 L (39.0-51.0) % Plt Count 227 (150-450) th/mm3 BMP 08/17/18 13:30 Sodium 133 L Potassium 3.9 Chloride 96 L Carbon Dioxide 28.7 BUN 11 Creatinine 0.86 Calcium 8.8 Liver Function 08/17/18 Range/Units 13:30 Total Bilirubin 0.9 (0.2-1.0) mg/dL AST 24 (15-37) U/L ALT 35 (12-78) U/L Alkaline Phosphatase 88 (45-117) U/L Albumin 3.0 L (3.4-5.0) g/dL Urine 08/17/18 Range/Units 14:43 Urine Color Yellow (Yellw/Straw) Urine Clarity Clear (Clear) Urine pH 7.0 (5.0-8.5) Ur Specific [place] 1.025 (1.002-1.035) Urine Protein Negative (Neg-Trace) mg/dL Urine Glucose (UA) 500 or greater (Negative) mg/dL - Imaging Impressions Scrotum Ultrasound 08/17/18 13:01 CONCLUSION: 1. Both testicles are grossly within normal limits. 2. Small left epididymal cyst measuring 9 mm. 3. Small bilateral hydroceles. 4. Diffuse nonspecific edema versus thickening involving the scrotal wall of the scrotum. Abdomen/Pelvis CT 08/17/18 13:05 CONCLUSION: 1. Mild nonspecific infiltrate in the posterior left lower lung. 2. Tiny 2 mm nonobstructing stone upper pole left kidney. 3. No acute abdominal or pelvic pathology. Caprini VTE Risk Assessment Caprini VTE Risk Assessment: No/Low Risk (score <= 1) Caprini Risk Assessment Model: Point Value = 1 Point Value = 2 Point Value = 3 Point Value = 5 Age 41-60 Minor surgery BMI > 25 kg/m2 Swollen legs Varicose veins or History of unexplained or recurrent spontaneous Oral contraceptives or hormone replacement Sepsis (< 1 month) Serious lung disease, including pneumonia (< 1 month) Abnormal pulmonary function Acute myocardial infarction Congestive heart failure (< 1 month) History of inflammatory bowel disease Medical patient at bed rest Age 61-74 Arthroscopic surgery Major open surgery (> 45 min) Laparoscopic surgery (> 45 min) Malignancy Confined to bed (> 72 hours) Immobilizing plaster cast Central venous access Age >= 75 History of VTE Family history of VTE Factor V Leiden Prothrombin [id number] Lupus anticoagulant Anticardiolipin antibodies Elevated serum homocysteine Heparin-induced thrombocytopenia Other congenital or acquired thrombophilia Stroke (< 1 month) Elective arthroplasty Hip, pelvis, or leg fracture Acute spinal cord injury (< 1 month) Prophylaxis Regimen: Total Risk Factor Score Risk Level Prophylaxis Regimen 0-1 Low Early ambulation 2 Moderate Order ONE of the following: *Sequential Compression Device (SCD) *Heparin 5000 units SQ BID 3-4 Higher Order ONE of the following medications: *Heparin 5000 units SQ TID *Enoxaparin/Lovenox 40 mg SQ daily (WT < 150 kg, CrCl > 30 mL/min) *Enoxaparin/Lovenox 30 mg SQ daily (WT < 150 kg, CrCl > 10-29 mL/min) *Enoxaparin/Lovenox 30 mg SQ BID (WT < 150 kg, CrCl > 30 mL/min) AND/OR *Sequential Compression Device (SCD) 5 or more Highest Order ONE of the following medications: *Heparin 5000 units SQ TID (Preferred with Epidurals) *Enoxaparin/Lovenox 40 mg SQ daily (WT < 150 kg, CrCl > 30 mL/min) *Enoxaparin/Lovenox 30 mg SQ daily (WT < 150 kg, CrCl > 10-29 mL/min) *Enoxaparin/Lovenox 30 mg SQ BID (WT < 150 kg, CrCl > 30 mL/min) AND *Sequential Compression Device (SCD) Assessment and Plan - Assessment (1) Scrotal edema Code(s): N50.89 - Other specified disorders of the male genital organs Status : Acute (2) Diabetes Code(s): E11.9 - Type 2 diabetes mellitus without complications Status: Chronic (3) Hypertension Code(s): I10 - Essential (primary) hypertension Status: Chronic (4) Cellulitis of scrotum Code(s): N49.2 - Inflammatory disorders of scrotum Status: Acute - Plan This is a 68-year-old CM with a history of HTN, IDDM, and Chronic back pain who presents to the emergency department for evaluation of scrotal swelling and pain in for the past 4 days. Patient was seen by his PCP and Rx Levaquin for the cellulitis but reports worsening swelling since then. Patient is being admitted for inpatient management due to failed outpatient therapy, hospital day #1 1. Scrotal Edema Due to Cellulitis Started on meropenem, clindamycin, and vancomycin in the ED, will continue (Pharmacy to dose Vanc) We will check CRP in AM Will get ID consult We will get a stat BNP to rule out CHF as contributing factor although no history stated, Lungs CTAx2, and minimal edema of bilateral lower extremity Blood cultures obtained CT ABD/Pelvis: Mild nonspecific infiltrate in the posterior left lower lung. Tiny 2 mm nonobstructing stone upper pole left kidney. No acute abdominal or pelvic pathology. Scrotal US: 1. Both testicles are grossly within normal limits. 2. Small left epididymal cyst measuring 9 mm. 3. Small bilateral hydroceles. 4. Diffuse nonspecific edema versus thickening involving the scrotal wall of the scrotum. 2. Scrotal Ulcer Possibly due to cellulitis, however culture obtained in the ED Patient denies history of previous episode Although ulcers can be concerning for HSV, patient reports ulcers nontender Will obtain HSV titers 3. Leukocytosis WBC 11.1 on admission, likely secondary to cellulitis Follow-up CBC in AM 4. Infiltrate of LLL per CT Patient denies cough/fever and sputum On ABX for cellulitis 5. Anemia Hemoglobin 12.4, will obtain iron studies Will continue to monitor Per review of EMR Hemoglobin 16 in 2010 6. Hyponatremia Sodium 133 on admission Continue normal saline at 50 ml/hr (avoiding fluid overload with edema) Stop in a.m. once hyponatremia resolved 7. Diabetes mellitus, type II, insulin-dependent Continue home Lantus 40 units daily and SSI Will obtain hemoglobin A1c We will check blood sugars before meals and at bedtime 8. Hypertension Patient is unsure if he is supposed to be on meds We will place on clonidine as needed If required overnight consider starting scheduled med in a.m. 9. Illicit Drug Use Patient admits to heroin use last night Will obtain UDS Will monitor for symptoms of withdrawal Encourage cessation 10. DVT prophylaxis: SCD's 11. Dispo: Follow-up urology and ID reccs Code Status: full Discussed Condition With: patient, RN
[2018-08-17] MEDS ORDERED: Sod Chloride 0.9% Inj 1,000 ML IV.CONT SCH (18:00)
[2018-08-17] MEDS: Insulin NovoLIN Regular Correctional Sugar Inj SQ SCH ×2 (18:07→21:18)
[2018-08-17] MEDS: Insulin Detemir Inj 1,000 UNIT/10 ML Vial SQ SCH (18:08)
[2018-08-17] MEDS: HYDROmorphone PF Inj 2 MG/ML Vial IV.PUSH PRN (19:50)
[2018-08-17] MEDS: Senna/Docusate Sodium 8.6/50 MG Tablet PO SCH (21:16)
[2018-08-17] MEDS: Clindamycin 600 mg/NS Premix 600 MG/50 ML PIGGYBACK IV.SIG SCH (21:20)
[2018-08-17] MEDS ORDERED: Clindamycin Inj 600 MG/4 ML Vial IV.SIG SCH (22:00)
[2018-08-18] MEDS: HYDROmorphone PF Inj 2 MG/ML Vial IV.PUSH PRN ×2 (00:07→05:37)
[2018-08-18 00:55] LABS: Amphetamine Screen,Urine Neg (Neg); Barbiturate Screen,Urine Neg (Neg); Cannabinoid Screen,Urine Neg (Neg); Cocaine Screen,Urine Neg (Neg)
[2018-08-18 00:56] LABS: Opiate Screen,Urine Pos (Neg)
[2018-08-18] MEDS: Vancomycin Inj 1,250 MG in Sodium Chlor 0.9% Inj 250 ML IV.SIG SCH ×2 (03:51→16:49)
[2018-08-18] MEDS: Clindamycin 600 mg/NS Premix 600 MG/50 ML PIGGYBACK IV.SIG SCH ×3 (05:35→21:26)
[2018-08-18 05:59] LABS: Baso % (Auto) 0.3 % (0.0-2.0); Eos # (Auto) 0.1 th/mm3 (0.0-0.4); Eos % (Auto) 0.6 % (0.0-4.0); Hematocrit 36.1 % (39.0-51.0); Hemoglobin 12.4 gm/dL (13.0-17.0); Lymph # (Auto) 1.2 th/mm3 (1.0-4.8); Mean Corpuscular HGB Conc 34.3 % (32.0-36.0); Mean Corpuscular Hemoglobin 31.5 pg (27.0-34.0); Mean Platelet Volume 8.6 fL (7.0-11.0); Neut # (Auto) 7.6 th/mm3 (1.8-7.7); Neut % (Auto) 77.1 % (16.0-70.0); Platelet Count 245 th/mm3 (150-450); Red Blood Count 3.93 mil/mm3 (4.50-5.90); Red Cell Distribution Width 12.8 % (11.6-17.2); White Blood Count 9.9 th/mm3 (4.0-11.0)
[2018-08-18 06:23] LABS: % Iron Saturation 9.1 % (20-50); Alanine Aminotransferase 35 U/L (12-78); Albumin 2.9 g/dL (3.4-5.0); Alkaline Phosphatase 81 U/L (45-117); Anion Gap 8 meq/L (5-15); Aspartate Aminotransferase 29 U/L (15-37); Blood Urea Nitrogen 8 mg/dL (7-18); Calcium 8.8 mg/dL (8.5-10.1); Carbon Dioxide 30.8 meq/L (21.0-32.0); Chloride 102 meq/L (98-107); Chol/HDL Ratio 1.71 Ratio; Cholesterol 87 mg/dL (120-200); Glomerular Filtration Rate Greater Than 89 mL/min (>89); HDL Cholesterol 50.6 mg/dL (40.0-60.0); Iron 29 mcg/dL (65-175); LDL Cholesterol,Calculated 25 mg/dL (0-99); Potassium 3.4 meq/L (3.5-5.1); Sodium 141 meq/L (136-145); Total Iron Binding Capacity 318 mcg/dL (250-450); Total Protein 6.5 g/dL (6.4-8.2); Triglycerides 56 mg/dL (42-150)
[2018-08-18 06:27] LABS: Glucose,Random 40 mg/dL (74-106)
[2018-08-18] MEDS: Insulin NovoLIN Regular Correctional Sugar Inj SQ SCH ×4 (07:05→20:38)
[2018-08-18] MEDS: Senna/Docusate Sodium 8.6/50 MG Tablet PO SCH ×2 (08:22→20:38)
[2018-08-18] MEDS: Insulin Detemir Inj 1,000 UNIT/10 ML Vial SQ SCH ×2 (08:24→12:30)
--- NOTE | 2018-08-18 10:01 | ECG ---
Date Performed: 08/17/2018 Time Performed: 15:20:05 PTAGE: 68 years EKG: SINUS BRADYCARDIA MARKED LEFT AXIS DEVIATION LEFT VENTRICULAR HYPERTROPHY AND ST-T CHANGE A BNORMAL ECG PREVIOUS TRACING : 05/26/2011 11.23 DOCTOR: Omid Boyce Interpretating Date/Time 08/18/2018 10:00:34
--- NOTE | 2018-08-18 11:07 | P.PN ---
Subjective Interval history: Follow-up visit for scrotal edema/cellulitis failed outpatient treatment and diabetes mellitus. Patient seen and examined resting in bed in no acute distress. He planes of scrotal pain and describes this as a burning sensation. Denies any fevers or chills but endorses sweats especially overnight. Denies any nausea, vomiting, diarrhea, cough, shortness of breath or chest pain. Nurse reports hypoglycemic event overnight. Nurse reports patient acting suspicious when they entered the room when the current was closed. Physical Exam Vital signs: Vital Signs 08/17/18 12:29 08/17/18 12:48 08/17/18 14:33 Temperature 97.4 F L Pulse Rate 76 75 58 L Respiratory Rate 20 17 18 Blood Pressure 160/71 H 166/79 H 167/71 H Pulse Oximetry 97 99 98 08/17/18 19:08 08/17/18 20:00 08/18/18 00:00 Temperature 98.4 F 98.4 F 98.1 F Pulse Rate 59 L 56 L 54 L Respiratory Rate 16 20 16 Blood Pressure 157/72 H 143/67 H 154/67 H Pulse Oximetry 98 98 97 08/18/18 08:00 Temperature Pulse Rate Respiratory Rate 16 Blood Pressure Pulse Oximetry Intake & Output 08/17/18 08/18/18 08/18/18 18:59 06:59 18:59 Intake Total 1025 / 1025 562.5 / 562.5 Balance 1025 / 1025 562.5 / 562.5 Weight 74.389 kg 75.5 kg Intake: IV 665 / 665 562.5 / 562.5 Cleocin 600 mg/NS Premix 600 mg 100 / 100 In 50 ml @ 100 mls/hr IV.SIG Q8H [place] Rx#:[id number] Cleocin 900 mg/NS Premix 900 mg 50 / 50 In 50 ml @ 100 mls/hr IV.SIG ONCE ONE Rx#:[id number] Merrem Inj 2,000 MG In NS Inj 100 / 100 100 ML @ 200 mls/hr IV.SIG ONCE STA Rx#:[id number] Merrem Inj 1,000 MG In NS Inj 200 / 200 100 ML @ 200 mls/hr IV.SIG Q8H [place] Rx#:[id number] Vancomycin Inj 1,250 MG In NS 262.5 / 262.5 Inj 250 ML @ 250 mls/hr IV.SIG Q12H [facility] Rx#:[id number] Vancomycin Inj 1,500 MG In NS 515 / 515 Inj 500 ML @ 250 mls/hr IV.SIG ONCE ONE Rx#:[id number] Oral 360 / 360 Other: # Voids 1 1 Narrative: GENERAL: Well-nourished male, lying comfortably, in no acute distress SKIN: Warm and diaphoretic. HEAD: Normocephalic. No scleral icterus. No injection or drainage. PERRLA. NECK: Supple, trachea midline. CARDIOVASCULAR: Regular rate and rhythm without murmurs, gallops, or rubs. RESPIRATORY: Breath sounds equal bilaterally. No accessory muscle use. GASTROINTESTINAL: Abdomen soft, non-tender, nondistended. MUSCULOSKELETAL: No cyanosis, or edema. : Significant scrotal edema, scaling of the skin over the left testicle. Small ulcer on the right testicle with dry slough. Penis circumcised. BACK: Nontender without obvious deformity. No CVA tenderness. NEURO: AAox3, pleasant, moving all extremities without noted deficits. Results - Labs CBC & Chem 7: 08/18/18 05:00 08/18/18 05:00 Laboratory Results - last 24 hr 08/17/18 08/17/18 08/17/18 13:30 13:30 13:30 WBC 11.1 H RBC 3.94 L Hgb 12.4 L Hct 36.8 L MCV 93.3 MCH 31.5 MCHC 33.8 RDW 13.1 Plt Count 227 MPV 8.2 Neut % (Auto) 86.7 H Lymph % (Auto) 4.5 L [place] % (Auto) 7.8 Eos % (Auto) 0.5 Baso % (Auto) 0.5 Neut # (Auto) 9.6 H Lymph # (Auto) 0.5 L [place] # (Auto) 0.9 Eos # (Auto) 0.1 Baso # (Auto) 0.1 WBC Differential . Differential Comment Auto diff final Sodium 133 L Potassium 3.9 Chloride 96 L Carbon Dioxide 28.7 Anion Gap 8 BUN 11 Creatinine 0.86 Estimated GFR 89 POC Glucose Random Glucose 338 H Lactic Acid 1.9 Calcium 8.8 Iron TIBC % Saturation Total Bilirubin 0.9 AST 24 ALT 35 Alkaline Phosphatase 88 C-Reactive Protein B-Natriuretic Peptide Total Protein 6.4 Albumin 3.0 L Triglycerides Cholesterol LDL Cholesterol, Calc HDL Cholesterol Cholesterol/HDL Ratio Urine Color Urine Clarity Urine pH Ur Specific [place] Urine Protein Urine Glucose (UA) Urine Ketones Urine Occult Blood Urine Nitrate Urine Bilirubin Urine Urobilinogen Ur Leukocyte Esterase Urine RBC Urine WBC Micro UA Comment Ur Microscopic Review Urine Culture Comments Urine Opiates Screen Ur Barbiturates Screen Ur Amphetamines Screen U Benzodiazepines Scrn Urine Cocaine Screen U Cannabinoids Screen 08/17/18 08/17/18 08/17/18 13:30 14:43 17:26 WBC RBC Hgb Hct MCV MCH MCHC RDW Plt Count MPV Neut % (Auto) Lymph % (Auto) [place] % (Auto) Eos % (Auto) Baso % (Auto) Neut # (Auto) Lymph # (Auto) [place] # (Auto) Eos # (Auto) Baso # (Auto) WBC Differential Differential Comment Sodium Potassium Chloride Carbon Dioxide Anion Gap BUN Creatinine Estimated GFR POC Glucose 200 H Random Glucose Lactic Acid Calcium Iron TIBC % Saturation Total Bilirubin AST ALT Alkaline Phosphatase C-Reactive Protein B-Natriuretic Peptide 53 Total Protein Albumin Triglycerides Cholesterol LDL Cholesterol, Calc HDL Cholesterol Cholesterol/HDL Ratio Urine Color Yellow Urine Clarity Clear Urine pH 7.0 Ur Specific [place] 1.025 Urine Protein Negative Urine Glucose (UA) 500 or greater Urine Ketones Negative Urine Occult Blood Negative Urine Nitrate Negative Urine Bilirubin Negative Urine Urobilinogen Less than 2 Ur Leukocyte Esterase Negative Urine RBC Less than 1 Urine WBC Less than 1 Micro UA Comment Culture not ind Ur Microscopic Review Not Reportable Urine Culture Comments Culture not ind Urine Opiates Screen Ur Barbiturates Screen Ur Amphetamines Screen U Benzodiazepines Scrn Urine Cocaine Screen U Cannabinoids Screen 08/17/18 08/18/18 08/18/18 19:17 00:15 05:00 WBC 9.9 RBC 3.93 L Hgb 12.4 L Hct 36.1 L MCV 92.0 MCH 31.5 MCHC 34.3 RDW 12.8 Plt Count 245 MPV 8.6 Neut % (Auto) 77.1 H Lymph % (Auto) 12.0 [place] % (Auto) 10.0 H Eos % (Auto) 0.6 Baso % (Auto) 0.3 Neut # (Auto) 7.6 Lymph # (Auto) 1.2 [place] # (Auto) 1.0 H Eos # (Auto) 0.1 Baso # (Auto) 0.0 WBC Differential . Differential Comment Auto diff final Sodium Potassium Chloride Carbon Dioxide Anion Gap BUN Creatinine Estimated GFR POC Glucose 229 H Random Glucose Lactic Acid Calcium Iron TIBC % Saturation Total Bilirubin AST ALT Alkaline Phosphatase C-Reactive Protein B-Natriuretic Peptide Total Protein Albumin Triglycerides Cholesterol LDL Cholesterol, Calc HDL Cholesterol Cholesterol/HDL Ratio Urine Color Urine Clarity Urine pH Ur Specific [place] Urine Protein Urine Glucose (UA) Urine Ketones Urine Occult Blood Urine Nitrate Urine Bilirubin Urine Urobilinogen Ur Leukocyte Esterase Urine RBC Urine WBC Micro UA Comment Ur Microscopic Review Urine Culture Comments Urine Opiates Screen Pos H Ur Barbiturates Screen Neg Ur Amphetamines Screen Neg U Benzodiazepines Scrn Neg Urine Cocaine Screen Neg U Cannabinoids Screen Neg 08/18/18 08/18/18 08/18/18 05:00 06:40 07:04 WBC RBC Hgb Hct MCV MCH MCHC RDW Plt Count MPV Neut % (Auto) Lymph % (Auto) [place] % (Auto) Eos % (Auto) Baso % (Auto) Neut # (Auto) Lymph # (Auto) [place] # (Auto) Eos # (Auto) Baso # (Auto) WBC Differential Differential Comment Sodium 141 Potassium 3.4 L Chloride 102 Carbon Dioxide 30.8 Anion Gap 8 BUN 8 Creatinine 0.69 Estimated GFR Greater than 89 POC Glucose 46 L* 82 Random Glucose 40 L* D Lactic Acid Calcium 8.8 Iron 29 L TIBC 318 % Saturation 9.1 L Total Bilirubin 0.8 AST 29 ALT 35 Alkaline Phosphatase 81 C-Reactive Protein 4.20 H B-Natriuretic Peptide Total Protein 6.5 Albumin 2.9 L Triglycerides 56 Cholesterol 87 L LDL Cholesterol, Calc 25 HDL Cholesterol 50.6 Cholesterol/HDL Ratio 1.71 Urine Color Urine Clarity Urine pH Ur Specific [place] Urine Protein Urine Glucose (UA) Urine Ketones Urine Occult Blood Urine Nitrate Urine Bilirubin Urine Urobilinogen Ur Leukocyte Esterase Urine RBC Urine WBC Micro UA Comment Ur Microscopic Review Urine Culture Comments Urine Opiates Screen Ur Barbiturates Screen Ur Amphetamines Screen U Benzodiazepines Scrn Urine Cocaine Screen U Cannabinoids Screen Microbiology 08/17/18 13:15 Blood - Peripheral Aerobic Blood Culture - Preliminary No growth in 1 day 08/17/18 13:15 Blood - Peripheral Anaerobic Blood Culture - Preliminary No growth in 1 day 08/17/18 13:30 Blood - Peripheral Aerobic Blood Culture - Preliminary No growth in 1 day 08/17/18 13:30 Blood - Peripheral Anaerobic Blood Culture - Preliminary No growth in 1 day 08/17/18 13:30 Wound - Scrotum Gram Stain - Final - Imaging Impressions Scrotum Ultrasound 08/17/18 13:01 CONCLUSION: 1. Both testicles are grossly within normal limits. 2. Small left epididymal cyst measuring 9 mm. 3. Small bilateral hydroceles. 4. Diffuse nonspecific edema versus thickening involving the scrotal wall of the scrotum. Abdomen/Pelvis CT 08/17/18 13:05 CONCLUSION: 1. Mild nonspecific infiltrate in the posterior left lower lung. 2. Tiny 2 mm nonobstructing stone upper pole left kidney. 3. No acute abdominal or pelvic pathology. Assessment and Plan - Assessment (1) Scrotal edema Code(s): N50.89 - Other specified disorders of the male genital organs Status : Acute (2) Diabetes Code(s): E11.9 - Type 2 diabetes mellitus without complications Status: Chronic (3) Hypertension Code(s): I10 - Essential (primary) hypertension Status: Chronic (4) Cellulitis of scrotum Code(s): N49.2 - Inflammatory disorders of scrotum Status: Acute - Plan his is a 68-year-old CM with a history of HTN, IDDM, and Chronic back pain who presents to the emergency department for evaluation of scrotal swelling and pain in for the past 4 days. Patient was seen by his PCP and Rx Levaquin for the cellulitis but reports worsening swelling since then. Patient is being admitted for inpatient management due to failed outpatient therapy, hospital day #1 Scrotal Edema Due to Cellulitis-failed outpatient treatment -Continue meropenem, clindamycin, and vancomycin -CRP 4.2 - Consult ID, appreciate assistance. - BC x2 with no growth in one day. Wound culture pending - No acute abdominal or pelvic pathology seen in abd/pelvis CT - Scrotal US with small left epididymal cyst (9mm), small bilateral hydroceles, diffuse nonspecific edema vs. thickening involving the scrotal wall of the scrotum. - Pain control with p.o. Oxycodone and IV Morphine Scrotal Ulcer-nontender -Possibly due to cellulitis, follow wound cultures -HSV titers pending Leukocytosis -WBC 11.1 on admission, likely secondary to cellulitis - CBC down to 9.9, afebrile overnight Infiltrate of LLL per CT -Patient denies cough/fever and sputum -On ABX for cellulitis Microcytic Anemia -Hemoglobin 12.4, iron studies with low Fe and low % sat - Start iron supplementation Hyponatremia Hypokalemia - Sodium 133 on admission-->NS 50ml/hr, improved. -Tolerating p.o, DC IVF due to edema - Replace with 20Kcl p.o Diabetes mellitus, type II, insulin-dependent - ADA diet, ISS with accu-checks - Received home dose Lantus 40 units late yesterday. -Hypoglycemic w/ BS in the 's, asymptomatic - Hold Levemir today, restart tomorrow at 20 units Hypertension -PRN clonidine Illicit Drug Use -Patient admits heroin use - UDS + for opiates only - Will monitor for symptoms of withdrawal, possibly attributing to hypoglycemia - Diaphoretic this morning ? Withdrawing, close monitoring. Move close to nurses station if possible. - PRN Ativan for anxiety and agitation - Encourage cessation 10. 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
[2018-08-18] MEDS: oxyCODONE/Acetaminophen 10/325 Tablet PO PRN ×2 (11:13→18:08)
--- NOTE | 2018-08-18 12:04 | MB ---
cc: Celestino Rivas DO DATE: 08/18/2018 HISTORY OF PRESENT ILLNESS: Mr. Poe is a 68-year-old male with a history of insulin-dependent diabetes who has had scrotal cellulitis starting approximately 4 days ago. He denies any fevers or chills at the present time. He underwent a CT scan last night along with a scrotal ultrasound which did not show any abnormalities. There were small bilateral hydroceles noted on the ultrasound with nonspecific edema of the scrotal wall identified. He was started on Levaquin by his primary care doctor, but this has not been helping. PAST MEDICAL HISTORY: Includes chronic back pain, insulin-dependent diabetes, hypertension. PAST SURGICAL HISTORY: Noted for tonsillectomy and right knee surgery. FAMILY HISTORY: Denies any family history of prostate cancer. SOCIAL HISTORY: Prior alcoholic. Currently smokes. Denies any drug use. MEDICATIONS: Refer to the chart. ALLERGIES: PENICILLIN, CEPHALEXIN, AMITRIPTYLINE. REVIEW OF SYSTEMS: Scrotal swelling with edema. Chronic back pain. Denies chest pain, shortness of breath, headaches, gait disturbances, bleeding disorders, skin lesions, diarrhea or constipation. The remaining review of systems were reviewed and were negative. PHYSICAL EXAMINATION: VITAL SIGNS: Today, temperature 98.1, heart rate 54, respiratory rate 16, blood pressure 154/67. GENERAL: Well-developed, well-nourished, 68-year-old male in no acute distress. HEENT: Normocephalic, atraumatic. Pupils equal, round, regular and reactive to light. Extraocular movements intact. NECK: Supple. HEART: Regular rate and rhythm. LUNGS: Clear. ABDOMEN: Soft, nontender, nondistended. GENITOURINARY: Uncircumcised phallus. Scrotal thickening with edema is present. A small wound is noted on the right hemiscrotum. He also has a small area of fluctuance in the right perineal area. No evidence of any drainage. EXTREMITIES: Show no cyanosis, clubbing or edema. NEUROLOGIC: Cranial nerves 2-12 are intact. LABORATORY DATA: White count 9.9, hemoglobin 12.4, hematocrit 36.1, platelet count 245. Sodium 141, potassium 3.4, chloride 102, CO2 of 30.8, BUN 8, creatinine 0.69, glucose 40. Cultures are currently pending. Again, on imaging, ultrasound and CAT scan show no acute evidence of an intrapelvic abscess or abnormality. Small epididymal cysts and hydroceles are noted. ASSESSMENT AND PLAN: A 68-year-old male with a history of insulin-dependent diabetes with scrotal cellulitis. We will recommend warm compresses to his perineal area with scrotal elevation. Continue intravenous antibiotics for now. Check culture results. We will follow closely with you. Thank you for the consult. DO Brenda Heredia , 09:48 AM , 11:07 AM
[2018-08-18 13:09] LABS: Hemoglobin A1c 10.7 % (4.3-6.0)
--- NOTE | 2018-08-18 15:20 | P.DIET ---
Nutritional Evaluation Type of nutrition evaluation: initial Nutrition screening: Weight Loss > 10 lbs Subjective Subjective Comments: Pt reports a good appetite but also reports recent unintentional weight loss Objective - Diagnosis testicular swelling - Objective [place] body weight: 78 kg % IBW: 97 Body Weight Used for Calculations: Actual (75.5kg) Energy Needs - Lower Range (kCal/kg): 25 Energy Needs - Upper Range (kCal/kg): 30 Lower Limit kCal/kg (kCals): 1,888 Upper Limit kCal/kg (kCals): 2,265 Lower Limit Protein Factor (Grams per Kg): 1.1 Upper Limit Protein Factor (Grams per Kg): 1.3 Lower Protein Needs (Protein): 83 Upper Protein Needs (Protein): 98 Fluid Factor (ml/kg): 30 Estimated Fluid Needs (ml): 2,265 Dietitian Reviewed in Medical Record: Current diet, Curent medications, Intake & Output, Labs, Medical history Diet Order: 1999 ADA Oral Diet Intake Amount: Good 75-90% Objective Comments: PMH: DM, HTN, back pain Assessment Assessment: Pt at nutritonal risk r/t reported recent unintentional weight loss. Pt's nutritional needs as assessed above. Pt has only been here for two meals but is eating 75-100%. Will continue to monitor po intake and provide supplements as needed. Recommendations: 1999 ADA diet Dietitian to Monitor: Lab values, Glucose level, Intake & Output, Diet tolerance , Weight change, PO Intake
[2018-08-18] MEDS: Morphine Sulfate Inj 2 MG/ML Vial IV.PUSH PRN ×2 (16:02→20:40)
--- NOTE | 2018-08-18 18:42 | P.CONID ---
History of Present Illness Service: ID Consult date: 08/18/18 Requesting Physician: Maryjane Fuller Reason for Consult: scrotal cellulitis Primary Care Provider: [facility] Chief Complaint: testicular swelling History of Present Illness: 68 yo diabetic male presentesd with several days of worsening edema, erythema, pain of the scrotum He apparently has poorly controlled DM no fever Has mmild leukocytosis of 11 K US of scrotum showed diffuse nonspecific edema versus thickening involving the scrotal wall of the scrotum. Pt was started on broad spectrum abx including meropenm, vancomycin and clindamycin He feels some improvement, He has a small draining R hemoscrotum lesion and culture taken from it is growing MRSA Blood clx NGTD @ 1 day Pt was seen by urlogist who recommended warm compresses to his perineal area with scrotal elevation and intravenous antibiotics Review of Systems All other systems reviewed negative except as stated in HPI PMFSH - History History Provided By: Patient - Medical History Medical History: Medical History (Last Reviewed 08/18/18 @ 21:33 by Selena Strauss MD) Back pain Diabetes HTN (hypertension) - Surgical History Surgical History: Surgical History (Last Reviewed 08/18/18 @ 21:33 by Selena Strauss MD) H/O knee surgery Previous back surgery - Family History Family History: Family History (Last Reviewed 08/18/18 @ 21:33 by Selena Strauss MD) Other Family history normal - Social History I have reviewed the patient's Social History: Yes - Tobacco History Second Hand Smoke Exposure: Yes Tobacco Use In Past 30 Days: Yes Smoking Status: Current some day smoker Tobacco Type: Cigarettes - Alcohol History How Often Do You Have a Drink Containing Alcohol: Monthly or less - Substance Use History Substance History: No History of Abuse, Active Abuse - Substance Use Type 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 Route Used: Inhalation Frequency: daily Last Used: 08/16 Reason for Use: Calm Down Comment: pain control - Travel History Recent Travel in the [place] Within the Last 8 Weeks: No Recent Travel Out of the Country Within the Last 8 Weeks: No - Immunization History Tetanus Immunization: Unsure Hx Influenza Vaccine This Season: No Medications and Allergies Active Medications: Active Medications Al Hydroxide/Mg Hydroxide (Milk Of Magnesia Liq) 30 ml PO Q12H PRN PRN Reason: Mild Constipation Bisacodyl (Dulcolax Supp) 10 mg RECTAL DAILY PRN PRN Reason: SEVERE CONSITIPATION Clonidine HCl (Catapres) 0.1 mg PO Q6HR PRN PRN Reason: HYPERTENSION Dextrose (D50w Vial) 50 ml IV.PUSH UNSCH PRN PRN Reason: PER HYPOGLYCEMIA PROTOCOL Ferrous Sulfate (Ferosul) 325 mg PO DAILY [place] Glucagon (Glucagon Inj) 1 mg OTHER PRN PRN PRN Reason: for Hypoglycemia Protocol Meropenem 1,000 mg/ Sodium (Chloride) 100 mls @ 200 mls/hr IV.SIG Q8H [place] Last Infusion: 08/18/18 16:43 Dose: Infused Vancomycin HCl 1,250 mg/ (Sodium Chloride) 262.5 mls @ 250 mls/hr IV.SIG Q12H [place] Last Admin: 08/18/18 16:49 Dose: 150 mls/hr Clindamycin/Sodium Chloride (Cleocin 600 Mg/Ns Premix) 600 mg in 50 mls @ 100 mls/hr IV.SIG Q8H [place] Last Infusion: 08/18/18 15:59 Dose: Infused Insulin Detemir (Levemir Inj) 20 unit SQ DAILY [place] Last Admin: 08/18/18 12:30 Dose: 20 unit Insulin Human Regular (Novolin R Correctional Sugar Inj) 0 units SQ ACHS [facility]; Protocol Last Admin: 08/18/18 18:09 Dose: 4 units Lactulose (Lactulose Liq) 30 ml PO DAILY PRN PRN Reason: SEVERE CONSITIPATION Lorazepam (Ativan) 0.5 mg PO Q6H PRN PRN Reason: ANXIETY AND/OR AGITATION Miscellaneous Information ([facility] Ordered Lab Info) 0 each OTHER ONCE ONE Stop: 08/19/18 03:46 Morphine Sulfate (Morphine Inj) 2 mg IV.PUSH Q4H PRN PRN Reason: BREAKTHROUGH PAIN Last Admin: 08/18/18 16:02 Dose: 2 mg Oxycodone/Acetaminophen (Percocet 10/325 Mg) 1 tab PO Q6H PRN PRN Reason: PAIN SCALE 6 TO 10 Last Admin: 08/18/18 18:08 Dose: 1 tab Oxycodone/Acetaminophen (Percocet 5/325 Mg) 1 tab PO Q6H PRN PRN Reason: pain 2-5 Pharmacy Profile Note (Vancomycin Consult Pharmacy) 1 each OTHER UNSCH PRN PRN Reason: Pharmacy to dose Senna/Docusate Sodium (Sandy-Colace) 1 tab PO BID [facility] Last Admin: 08/18/18 08:22 Dose: 1 tab Sennosides (Senokot) 17.2 mg PO Q12H PRN PRN Reason: Moderate Constipation Allergies Allergy/AdvReac Type Severity Reaction Status Date / Time amitriptyline Allergy Severe AMS Verified 08/17/18 13:27 cephalexin Allergy Severe HIVES Verified 08/17/18 13:27 penicillin G Allergy Severe LOC Verified 08/17/18 13:27 Home Medications Medication Instructions Recorded Confirmed Type insulin glargine [Lantus U-100 40 unit SUBCUT DAILY 08/17/18 08/17/18 History Insulin] levofloxacin 500 mg PO DAILY 08/17/18 08/17/18 History Exam Vital signs: Vital Signs 08/17/18 19:08 08/17/18 20:00 08/18/18 00:00 Temperature 98.4 F 98.4 F 98.1 F Pulse Rate 59 L 56 L 54 L Respiratory Rate 16 20 16 Blood Pressure 157/72 H 143/67 H 154/67 H Pulse Oximetry 98 98 97 08/18/18 08:00 08/18/18 12:00 08/18/18 16:00 Temperature 98.3 F 97.8 F Pulse Rate 52 L 55 L Respiratory Rate 16 16 14 Blood Pressure 167/71 H 175/77 H Pulse Oximetry 97 98 Intake & Output 08/17/18 08/18/18 08/18/18 18:59 06:59 18:59 Intake Total 1025 / 1025 562.5 / 562.5 2550 / 2550 Balance 1025 / 1025 562.5 / 562.5 2550 / 2550 Weight 74.389 kg 75.5 kg Intake: IV 665 / 665 562.5 / 562.5 1150 / 1150 NS Inj 1,000 ML @ 50 mls/hr IV. 1000 / 1000 CONT .Q20H [place] Rx#:[id number] Cleocin 600 mg/NS Premix 600 mg 100 / 100 50 / 50 In 50 ml @ 100 mls/hr IV.SIG Q8H [place] Rx#:[id number] Cleocin 900 mg/NS Premix 900 mg 50 / 50 In 50 ml @ 100 mls/hr IV.SIG ONCE ONE Rx#:[id number] Merrem Inj 2,000 MG In NS Inj 100 / 100 100 ML @ 200 mls/hr IV.SIG ONCE STA Rx#:[id number] Merrem Inj 1,000 MG In NS Inj 200 / 200 100 / 100 100 ML @ 200 mls/hr IV.SIG Q8H [place] Rx#:[id number] Vancomycin Inj 1,250 MG In NS 262.5 / 262.5 Inj 250 ML @ 250 mls/hr IV.SIG Q12H [place] Rx#:[id number] Vancomycin Inj 1,500 MG In NS 515 / 515 Inj 500 ML @ 250 mls/hr IV.SIG ONCE ONE Rx#:[id number] Oral 360 / 360 1400 / 1400 Other: # Voids 1 1 3 - Constitutional no acute distress, average body habitus - Routine HEENT Exam Head: Present: normocephalic, atraumatic Eye: Present: EOMI, PERRL - Routine Neck Exam Present: supple. Absent: JVD, lymphadenopathy - Routine Chest/Breast/Axilla Exam Axillae: Absent: lymphadenopathy - Routine Respiratory Exam Present: CTA bilaterally. Absent: accessory muscle use, decreased breath sounds , respiratory distress, rhonchi - Routine Cardiovascular Exam Present: RRR, S1, S2. Absent: murmur, gallop, rubs - Routine Abdominal Exam Present: soft, normoactive bowel sounds. Absent: tenderness, distended, organomegaly, mass - Routine Exam Penile: Present: circumcision. Absent: swelling, erythema, lesions, vesicles Scrotal: Present: swelling, tenderness, erythema Groin: Present: inguinal lymphadenopathy (tender enlarged R lymph nodes) Comments: small open draining lesion on R hemiscrotum surrounded by erythema cw evolving abscess - Routine Extremities Exam Absent: cyanosis, clubbing, edema - Routine Skin Exam Present: dry, warm. Absent: jaundice, rash - Routine Neurological Exam Present: alert, oriented X3, CN II-XII intact, moving all extremities, vision grossly intact, hearing grossly intact, normal speech - Routine Psychiatric Exam Present: normal affect, normal thought process, cooperative Results - Labs CBC & Chem 7: 08/18/18 05:00 08/18/18 05:00 Labs: Laboratory Results - last 24 hr 08/17/18 08/17/18 08/18/18 13:30 19:17 00:15 WBC RBC Hgb Hct MCV MCH MCHC RDW Plt Count MPV Neut % (Auto) Lymph % (Auto) Turner % (Auto) Eos % (Auto) Baso % (Auto) Neut # (Auto) Lymph # (Auto) Turner # (Auto) Eos # (Auto) Baso # (Auto) WBC Differential Differential Comment Sodium Potassium Chloride Carbon Dioxide Anion Gap BUN Creatinine Estimated GFR POC Glucose 229 H Random Glucose Hemoglobin A1c Calcium Iron TIBC % Saturation Total Bilirubin AST ALT Alkaline Phosphatase C-Reactive Protein B-Natriuretic Peptide 53 Total Protein Albumin Triglycerides Cholesterol LDL Cholesterol, Calc HDL Cholesterol Cholesterol/HDL Ratio Urine Opiates Screen Pos H Ur Barbiturates Screen Neg Ur Amphetamines Screen Neg U Benzodiazepines Scrn Neg Urine Cocaine Screen Neg U Cannabinoids Screen Neg 08/18/18 08/18/18 08/18/18 05:00 05:00 05:00 WBC 9.9 RBC 3.93 L Hgb 12.4 L Hct 36.1 L MCV 92.0 MCH 31.5 MCHC 34.3 RDW 12.8 Plt Count 245 MPV 8.6 Neut % (Auto) 77.1 H Lymph % (Auto) 12.0 Turner % (Auto) 10.0 H Eos % (Auto) 0.6 Baso % (Auto) 0.3 Neut # (Auto) 7.6 Lymph # (Auto) 1.2 Turner # (Auto) 1.0 H Eos # (Auto) 0.1 Baso # (Auto) 0.0 WBC Differential . Differential Comment Auto diff final Sodium 141 Potassium 3.4 L Chloride 102 Carbon Dioxide 30.8 Anion Gap 8 BUN 8 Creatinine 0.69 Estimated GFR Greater than 89 POC Glucose Random Glucose 40 L* D Hemoglobin A1c 10.7 H Calcium 8.8 Iron 29 L TIBC 318 % Saturation 9.1 L Total Bilirubin 0.8 AST 29 ALT 35 Alkaline Phosphatase 81 C-Reactive Protein 4.20 H B-Natriuretic Peptide Total Protein 6.5 Albumin 2.9 L Triglycerides 56 Cholesterol 87 L LDL Cholesterol, Calc 25 HDL Cholesterol 50.6 Cholesterol/HDL Ratio 1.71 Urine Opiates Screen Ur Barbiturates Screen Ur Amphetamines Screen U Benzodiazepines Scrn Urine Cocaine Screen U Cannabinoids Screen 08/18/18 08/18/18 08/18/18 06:40 07:04 11:30 WBC RBC Hgb Hct MCV MCH MCHC RDW Plt Count MPV Neut % (Auto) Lymph % (Auto) Turner % (Auto) Eos % (Auto) Baso % (Auto) Neut # (Auto) Lymph # (Auto) Turner # (Auto) Eos # (Auto) Baso # (Auto) WBC Differential Differential Comment Sodium Potassium Chloride Carbon Dioxide Anion Gap BUN Creatinine Estimated GFR POC Glucose 46 L* 82 297 H Random Glucose Hemoglobin A1c Calcium Iron TIBC % Saturation Total Bilirubin AST ALT Alkaline Phosphatase C-Reactive Protein B-Natriuretic Peptide Total Protein Albumin Triglycerides Cholesterol LDL Cholesterol, Calc HDL Cholesterol Cholesterol/HDL Ratio Urine Opiates Screen Ur Barbiturates Screen Ur Amphetamines Screen U Benzodiazepines Scrn Urine Cocaine Screen U Cannabinoids Screen 08/18/18 16:08 WBC RBC Hgb Hct MCV MCH MCHC RDW Plt Count MPV Neut % (Auto) Lymph % (Auto) Turner % (Auto) Eos % (Auto) Baso % (Auto) Neut # (Auto) Lymph # (Auto) Turner # (Auto) Eos # (Auto) Baso # (Auto) WBC Differential Differential Comment Sodium Potassium Chloride Carbon Dioxide Anion Gap BUN Creatinine Estimated GFR POC Glucose 215 H Random Glucose Hemoglobin A1c Calcium Iron TIBC % Saturation Total Bilirubin AST ALT Alkaline Phosphatase C-Reactive Protein B-Natriuretic Peptide Total Protein Albumin Triglycerides Cholesterol LDL Cholesterol, Calc HDL Cholesterol Cholesterol/HDL Ratio Urine Opiates Screen Ur Barbiturates Screen Ur Amphetamines Screen U Benzodiazepines Scrn Urine Cocaine Screen U Cannabinoids Screen - Imaging Scrotum Ultrasound 08/17/18 13:01 CONCLUSION: 1. Both testicles are grossly within normal limits. 2. Small left epididymal cyst measuring 9 mm. 3. Small bilateral hydroceles. 4. Diffuse nonspecific edema versus thickening involving the scrotal wall of the scrotum. Abdomen/Pelvis CT 08/17/18 13:05 CONCLUSION: 1. Mild nonspecific infiltrate in the posterior left lower lung. 2. Tiny 2 mm nonobstructing stone upper pole left kidney. 3. No acute abdominal or pelvic pathology. Assessment and Plan - Plan Scrotal cellulitis and small abscess, MRSA cont vancomycin dc clinda, meropnem
[2018-08-19] MEDS: oxyCODONE/Acetaminophen 10/325 Tablet PO PRN ×4 (00:09→20:01)
[2018-08-19] MEDS: LORazepam 0.5 MG Tablet PO PRN ×3 (00:09→22:31)
[2018-08-19] MEDS: Morphine Sulfate Inj 2 MG/ML Vial IV.PUSH PRN ×3 (01:20→20:59)
[2018-08-19] MEDS: Vancomycin Inj 1,250 MG in Sodium Chlor 0.9% Inj 250 ML IV.SIG SCH (03:37)
[2018-08-19] MEDS ORDERED: Pharmacy Ordered Lab Info OTHER ONE (03:45)
[2018-08-19] MEDS: Insulin NovoLIN Regular Correctional Sugar Inj SQ SCH ×4 (07:12→20:11)
[2018-08-19] MEDS ORDERED: Sodium Chloride 0.9% 2 ML Flush PRN IV.FLUSH (07:24)
[2018-08-19] MEDS: Lisinopril 5 MG Tablet PO SCH (07:59)
[2018-08-19] MEDS: Ferrous Sulfate 325 MG Tablet PO SCH (07:59)
[2018-08-19] MEDS: Senna/Docusate Sodium 8.6/50 MG Tablet PO SCH ×2 (07:59→20:01)
[2018-08-19] MEDS: Sodium Chloride 0.9% 2 ML Flush BID IV.FLUSH SCH ×2 (08:00→20:30)
[2018-08-19] MEDS: Insulin Detemir Inj 1,000 UNIT/10 ML Vial SQ SCH (08:00)
--- NOTE | 2018-08-19 09:01 | P.PNURO ---
Subjective Patient symptoms today: Pt seen and examined. Restless. Objective Vital Signs: Vital Signs 08/18/18 12:00 08/18/18 16:00 08/18/18 20:00 Temperature 98.3 F 97.8 F 99.1 F Pulse Rate 52 L 55 L 51 L Respiratory Rate 16 14 16 Blood Pressure 167/71 H 175/77 H 143/64 H Pulse Oximetry 97 98 94 L 08/19/18 00:00 08/19/18 04:00 Temperature 98.5 F 98.6 F Pulse Rate 53 L 65 Respiratory Rate 16 20 Blood Pressure 168/78 H 189/81 H Pulse Oximetry 98 94 L Intake & Output 08/18/18 08/19/18 08/19/18 18:59 06:59 18:59 Intake Total 2812.5 / 2812.5 652.5 / 652.5 Balance 2812.5 / 2812.5 652.5 / 652.5 Weight 74.9 kg Intake: IV 1412.5 / 1412.5 412.5 / 412.5 NS Inj 1,000 ML @ 50 mls/hr IV. 1000 / 1000 CONT .Q20H [place] Rx#:[id number] Cleocin 600 mg/NS Premix 600 mg 50 / 50 50 / 50 In 50 ml @ 100 mls/hr IV.SIG Q8H [place] Rx#:[id number] Merrem Inj 1,000 MG In NS Inj 100 / 100 100 / 100 100 ML @ 200 mls/hr IV.SIG Q8H [place] Rx#:[id number] Vancomycin Inj 1,250 MG In NS 262.5 / 262.5 262.5 / 262.5 Inj 250 ML @ 250 mls/hr IV.SIG Q12H [place] Rx#:[id number] Oral 1400 / 1400 240 / 240 Other: # Voids 3 3 Result Diagrams: 08/18/18 05:00 08/18/18 05:00 Medications and IVs: Active Medications Generic Name Dose Route Start Last Admin Trade Name Freq PRN Reason Stop Dose Admin Al Hydroxide/Mg Hydroxide 30 ml 08/17/18 16:15 Milk Of Magnesia Liq PO Q12H PRN Mild Constipation Bisacodyl 10 mg 08/17/18 16:15 Dulcolax Supp RECTAL DAILY PRN SEVERE CONSITIPATION Clonidine HCl 0.1 mg 08/18/18 16:33 08/19/18 04:05 Catapres PO 0.1 mg Q6HR PRN Administration HYPERTENSION Dextrose 50 ml 08/17/18 16:40 D50w Vial IV.PUSH UNSCH PRN PER HYPOGLYCEMIA PROTOCOL Ferrous Sulfate 325 mg 08/19/18 09:00 08/19/18 07:59 Ferosul PO 325 mg DAILY [place] Administration Glucagon 1 mg 08/17/18 16:40 Glucagon Inj OTHER PRN PRN for Hypoglycemia Protocol Vancomycin HCl 1,250 mg/ 262.5 mls @ 250 mls/hr 08/18/18 04:00 08/19/18 04:49 Sodium Chloride IV.SIG Infused Q12H [place] Infusion Insulin Detemir 20 unit 08/18/18 11:30 08/19/18 08:00 Levemir Inj SQ 20 unit DAILY [place] Administration Insulin Human Regular 0 units 08/17/18 17:00 08/19/18 07:12 Novolin R Correctional Sugar Inj SQ Not Given ACHS [place] Protocol Lactulose 30 ml 08/17/18 16:15 Lactulose Liq PO DAILY PRN SEVERE CONSITIPATION Lisinopril 5 mg 08/19/18 09:00 08/19/18 07:59 Prinivil PO 5 mg DAILY [place] Administration Lorazepam 0.5 mg 08/18/18 16:29 08/19/18 00:09 Ativan PO 0.5 mg Q6H PRN Administration ANXIETY AND/OR AGITATION Morphine Sulfate 2 mg 08/18/18 09:48 08/19/18 01:20 Morphine Inj IV.PUSH 2 mg Q4H PRN Administration BREAKTHROUGH PAIN Oxycodone/Acetaminophen 1 tab 08/18/18 09:48 08/19/18 07:54 Percocet 10/325 Mg PO 1 tab Q6H PRN Administration PAIN SCALE 6 TO 10 Oxycodone/Acetaminophen 1 tab 08/18/18 09:48 Percocet 5/325 Mg PO Q6H PRN pain 2-5 Pharmacy Profile Note 1 each 08/17/18 16:44 Vancomycin Consult Pharmacy OTHER UNSCH PRN Pharmacy to dose Senna/Docusate Sodium 1 tab 08/17/18 21:00 08/19/18 07:59 Sandy-Colace PO 1 tab BID [place] Administration Sennosides 17.2 mg 08/17/18 16:15 Senokot PO Q12H PRN Moderate Constipation Sodium Chloride 2 ml 08/19/18 09:00 08/19/18 08:00 Ns Flush IV.FLUSH Not Given BID [place] Sodium Chloride 2 ml 08/19/18 07:24 Ns Flush IV.FLUSH PRN PRN FLUSH AFTER USING IV ACCESS Objective Remarks: Abd:soft,nt,nd Scrotal cellulitis improved today. Did not receive warm compresses yesterday as ordered. Assessment and Plan - Plan Scrotal cellulitis-improved Continue abx Warm compresses to perineal area Q1 hour.
[2018-08-19 10:17] LABS: Anion Gap 6 meq/L (5-15); Blood Urea Nitrogen 7 mg/dL (7-18); Calcium 8.6 mg/dL (8.5-10.1); Carbon Dioxide 32.1 meq/L (21.0-32.0); Chloride 100 meq/L (98-107); Glomerular Filtration Rate Greater Than 89 mL/min (>89); Glucose,Random 185 mg/dL (74-106); Potassium 3.6 meq/L (3.5-5.1); Sodium 138 meq/L (136-145)
--- NOTE | 2018-08-19 11:25 | P.PN ---
Subjective Interval history: Follow-up visit for scrotal edema/cellulitis failed outpatient treatment and diabetes mellitus. Patient is seen and examined in bed in no acute distress. He has complaints of back pain, encourage patient to get out of bed and ambulate. He denies any fevers, chills, nausea, vomiting or diarrhea. Scrotal edema has improved. Patient reports patient has been somewhat restless which is relieved with oral Ativan. Physical Exam Vital signs: Vital Signs 08/18/18 12:00 08/18/18 16:00 08/18/18 20:00 Temperature 98.3 F 97.8 F 99.1 F Pulse Rate 52 L 55 L 51 L Respiratory Rate 16 14 16 Blood Pressure 167/71 H 175/77 H 143/64 H Pulse Oximetry 97 98 94 L 08/19/18 00:00 08/19/18 04:00 08/19/18 08:00 Temperature 98.5 F 98.6 F 98 F Pulse Rate 53 L 65 68 Respiratory Rate 16 20 19 Blood Pressure 168/78 H 189/81 H 184/88 H Pulse Oximetry 98 94 L 97 Intake & Output 08/18/18 08/19/18 08/19/18 18:59 06:59 18:59 Intake Total 2812.5 / 2812.5 652.5 / 652.5 Balance 2812.5 / 2812.5 652.5 / 652.5 Weight 74.9 kg Intake: IV 1412.5 / 1412.5 412.5 / 412.5 NS Inj 1,000 ML @ 50 mls/hr IV. 1000 / 1000 CONT .Q20H [facility] Rx#:[id number] Cleocin 600 mg/NS Premix 600 mg 50 / 50 50 / 50 In 50 ml @ 100 mls/hr IV.SIG Q8H [facility] Rx#:[id number] Merrem Inj 1,000 MG In NS Inj 100 / 100 100 / 100 100 ML @ 200 mls/hr IV.SIG Q8H [facility] Rx#:[id number] Vancomycin Inj 1,250 MG In NS 262.5 / 262.5 262.5 / 262.5 Inj 250 ML @ 250 mls/hr IV.SIG Q12H [facility] Rx#:[id number] Oral 1400 / 1400 240 / 240 Other: # Voids 3 3 Date of Last Bowel Movement 08/19/18 Narrative: GENERAL: Well-nourished male, lying comfortably, in no acute distress SKIN: Warm and diaphoretic. HEAD: Normocephalic. No scleral icterus. No injection or drainage. PERRLA. NECK: Supple, trachea midline. CARDIOVASCULAR: Regular rate and rhythm without murmurs, gallops, or rubs. RESPIRATORY: Breath sounds equal bilaterally. No accessory muscle use. GASTROINTESTINAL: Abdomen soft, non-tender, nondistended. MUSCULOSKELETAL: No cyanosis, or edema. : Scrotal edema and erythema improved, scaling of the skin over the left testicle. Small ulcer on the right testicle dry and open to air. Penis circumcised. BACK: Nontender without obvious deformity. NEURO: AAox3, pleasant, moving all extremities without noted deficits. Results - Labs CBC & Chem 7: 08/18/18 05:00 08/19/18 09:23 Laboratory Results - last 24 hr 08/18/18 08/18/18 08/18/18 05:00 11:30 16:08 Sodium Potassium Chloride Carbon Dioxide Anion Gap BUN Creatinine Estimated GFR POC Glucose 297 H 215 H Random Glucose Hemoglobin A1c 10.7 H Calcium Vancomycin Trough 08/18/18 08/19/18 08/19/18 19:20 03:30 03:55 Sodium Potassium Chloride Carbon Dioxide Anion Gap BUN Creatinine Estimated GFR POC Glucose 273 H 161 H Random Glucose Hemoglobin A1c Calcium Vancomycin Trough 7.7 08/19/18 08/19/18 07:10 09:23 Sodium 138 Potassium 3.6 Chloride 100 Carbon Dioxide 32.1 H Anion Gap 6 BUN 7 Creatinine 0.63 Estimated GFR Greater than 89 POC Glucose 143 H Random Glucose 185 H D Hemoglobin A1c Calcium 8.6 Vancomycin Trough Microbiology 08/17/18 13:15 Blood - Peripheral Aerobic Blood Culture - Preliminary No growth in 2 days 08/17/18 13:15 Blood - Peripheral Anaerobic Blood Culture - Preliminary No growth in 2 days 08/17/18 13:30 Blood - Peripheral Aerobic Blood Culture - Preliminary No growth in 2 days 08/17/18 13:30 Blood - Peripheral Anaerobic Blood Culture - Preliminary No growth in 2 days 08/17/18 13:30 Wound - Scrotum Gram Stain - Final 08/17/18 13:30 Wound - Scrotum Wound Culture - Preliminary S. aureus MRSA Assessment and Plan - Assessment (1) Scrotal edema Code(s): N50.89 - Other specified disorders of the male genital organs Status : Acute (2) Diabetes Code(s): E11.9 - Type 2 diabetes mellitus without complications Status: Chronic (3) Hypertension Code(s): I10 - Essential (primary) hypertension Status: Chronic (4) Cellulitis of scrotum Code(s): N49.2 - Inflammatory disorders of scrotum Status: Acute - Plan his is a 68-year-old CM with a history of HTN, IDDM, and Chronic back pain who presents to the emergency department for evaluation of scrotal swelling and pain in for the past 4 days. Patient was seen by his PCP and Rx Levaquin for the cellulitis but reports worsening swelling since then. Patient is being admitted for inpatient management due to failed outpatient therapy, hospital day #1 Scrotal Edema Due to Cellulitis-failed outpatient treatment -Continue meropenem, clindamycin, and vancomycin -CRP 4.2 - Consult ID, appreciate assistance. - BC x2 with NGTD. Wound culture + for MRSA, only on IV Vanco today. - No acute abdominal or pelvic pathology seen in abd/pelvis CT - Scrotal US with small left epididymal cyst (9mm), small bilateral hydroceles, diffuse nonspecific edema vs. thickening involving the scrotal wall of the scrotum. - Pain control with p.o. Oxycodone and IV Morphine - Urology recommends antibiotics and worm compresses to scrotum. Scrotal Ulcer-nontender -Possibly due to cellulitis, follow wound cultures -HSV titers pending Leukocytosis -WBC 11.1-->9.9, low grade temp overnight of 99.1 Infiltrate of LLL per CT -Patient denies cough/fever and sputum, on room air. -On ABX for cellulitis Microcytic Anemia -Hemoglobin 12.4, iron studies with low Fe and low % sat - iron supplementation Diabetes mellitus, type II, insulin-dependent - ADA diet, ISS with accu-checks - BS still high, increase Levemir. Patient normally on (Levemir 40 units, but had hypoglycemic episode on admission) Hypertension - Start Lisinopril 5mg po dialy, monitor BP's and adjust meds accordingly -PRN clonidine Illicit Drug Use -Patient admits heroin use - UDS + for opiates only - Will monitor for symptoms of withdrawal, possibly attributing to hypoglycemia - Diaphoretic this morning ? Withdrawing, close monitoring. Move close to nurses station if possible. - PRN Ativan for anxiety and agitation - Encourage cessation 10. 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
[2018-08-19 11:50] VITALS: RESP 18
[2018-08-19] MEDS: Vancomycin Inj 1,500 MG in Sodium Chlor 0.9% Inj 500 ML IV.SIG SCH (15:06)
[2018-08-20] MEDS: Morphine Sulfate Inj 2 MG/ML Vial IV.PUSH PRN ×4 (01:02→16:50)
[2018-08-20 01:13] LABS: HSV 1 IgG Positive (Negative); HSV 2 IgG Negative (Negative)
[2018-08-20] MEDS: oxyCODONE/Acetaminophen 10/325 Tablet PO PRN ×3 (02:04→14:47)
[2018-08-20] MEDS: Vancomycin Inj 1,500 MG in Sodium Chlor 0.9% Inj 500 ML IV.SIG SCH ×2 (05:00→16:11)
[2018-08-20] MEDS: Insulin NovoLIN Regular Correctional Sugar Inj SQ SCH ×3 (08:53→16:49)
[2018-08-20] MEDS: Senna/Docusate Sodium 8.6/50 MG Tablet PO SCH (08:55)
[2018-08-20] MEDS: Lisinopril 5 MG Tablet PO SCH (08:55)
[2018-08-20] MEDS: Ferrous Sulfate 325 MG Tablet PO SCH (08:56)
[2018-08-20] MEDS: Sodium Chloride 0.9% 2 ML Flush BID IV.FLUSH SCH (08:59)
[2018-08-20] MEDS ORDERED: Insulin Detemir Inj 1,000 UNIT/10 ML Vial SQ SCH (09:00)
--- NOTE | 2018-08-20 10:41 | P.PNURO ---
Subjective Patient symptoms today: Pt seen and examined. States that he desires to go home. No fever. Objective Vital Signs: Vital Signs 08/19/18 11:49 08/19/18 16:00 08/19/18 20:00 Temperature 97.3 F L 97.9 F 97.3 F L Pulse Rate 67 52 L 53 L Respiratory Rate 18 18 18 Blood Pressure 161/75 H 135/80 165/113 H Pulse Oximetry 95 97 96 08/20/18 00:00 08/20/18 01:05 08/20/18 04:00 Temperature 97.7 F 97.6 F Pulse Rate 53 L 54 L Respiratory Rate 18 18 Blood Pressure 192/84 H 148/78 H 161/77 H Pulse Oximetry 96 97 08/20/18 05:45 08/20/18 08:00 Temperature 97.5 F L Pulse Rate 56 L Respiratory Rate 18 Blood Pressure 152/80 H 184/84 H Pulse Oximetry 97 Intake & Output 08/19/18 08/20/18 08/20/18 18:59 06:59 18:59 Intake Total 515 / 515 420 / 420 Output Total 500 / 500 Balance 515 / 515 -80 / -80 Weight 72.3 kg Intake: IV 515 / 515 Vancomycin Inj 1,500 MG In NS 515 / 515 Inj 500 ML @ 250 mls/hr IV.SIG Q12H [facility] Rx#:[id number] Oral 420 / 420 Output: Urine 500 / 500 Other: Date of Last Bowel Movement 08/19/18 08/19/18 Result Diagrams: 08/18/18 05:00 08/19/18 09:23 Medications and IVs: Active Medications Generic Name Dose Route Start Last Admin Trade Name Freq PRN Reason Stop Dose Admin Al Hydroxide/Mg Hydroxide 30 ml 08/17/18 16:15 Milk Of Magnesia Liq PO Q12H PRN Mild Constipation Bisacodyl 10 mg 08/17/18 16:15 Dulcolax Supp RECTAL DAILY PRN SEVERE CONSITIPATION Clonidine HCl 0.1 mg 08/18/18 16:33 08/19/18 22:04 Catapres PO 0.1 mg Q6HR PRN Administration HYPERTENSION Dextrose 50 ml 08/17/18 16:40 D50w Vial IV.PUSH UNSCH PRN PER HYPOGLYCEMIA PROTOCOL Ferrous Sulfate 325 mg 08/19/18 09:00 08/20/18 08:56 Ferosul PO 325 mg DAILY [facility] Administration Glucagon 1 mg 08/17/18 16:40 Glucagon Inj OTHER PRN PRN for Hypoglycemia Protocol Vancomycin HCl 1,500 mg/ 515 mls @ 250 mls/hr 08/19/18 16:00 08/20/18 05:00 Sodium Chloride IV.SIG 250 mls/hr Q12H [facility] Administration Insulin Detemir 25 unit 08/20/18 09:00 08/20/18 08:54 Levemir Inj SQ 25 unit DAILY [facility] Administration Insulin Human Regular 0 units 08/17/18 17:00 08/20/18 08:53 Novolin R Correctional Sugar Inj SQ 4 units ACHS [facility] Administration Protocol Lactulose 30 ml 08/17/18 16:15 Lactulose Liq PO DAILY PRN SEVERE CONSITIPATION Lisinopril 5 mg 08/19/18 09:00 08/20/18 08:55 Prinivil PO 5 mg DAILY [facility] Administration Lorazepam 0.5 mg 08/18/18 16:29 08/19/18 22:31 Ativan PO 0.5 mg Q6H PRN Administration ANXIETY AND/OR AGITATION Miscellaneous Information 0 each 08/21/18 03:45 [facility] Ordered Lab Info OTHER 08/21/18 03:46 ONCE ONE Morphine Sulfate 2 mg 08/18/18 09:48 08/20/18 05:01 Morphine Inj IV.PUSH 2 mg Q4H PRN Administration BREAKTHROUGH PAIN Oxycodone/Acetaminophen 1 tab 08/18/18 09:48 08/20/18 08:54 Percocet 10/325 Mg PO 1 tab Q6H PRN Administration PAIN SCALE 6 TO 10 Oxycodone/Acetaminophen 1 tab 08/18/18 09:48 Percocet 5/325 Mg PO Q6H PRN pain 2-5 Pharmacy Profile Note 1 each 08/17/18 16:44 Vancomycin Consult Pharmacy OTHER UNSCH PRN Pharmacy to dose Senna/Docusate Sodium 1 tab 08/17/18 21:00 08/20/18 08:55 Sandy-Colace PO 1 tab BID [facility] Administration Sennosides 17.2 mg 08/17/18 16:15 Senokot PO Q12H PRN Moderate Constipation Sodium Chloride 2 ml 08/19/18 09:00 08/20/18 08:59 Ns Flush IV.FLUSH 2 ml BID [facility] Administration Sodium Chloride 2 ml 08/19/18 07:24 Ns Flush IV.FLUSH PRN PRN FLUSH AFTER USING IV ACCESS Objective Remarks: Abd:soft,nt,nd Scrotal cellulitis improved today. Did not receive warm compresses yesterday as ordered. 08/20 Abd:soft,nt,nd Scrotal cellulitis improving. Assessment and Plan - Plan Scrotal cellulitis-improved Continue abx Warm compresses to perineal area Q1 hour. 08/20 Resolving scrotal cellulitis Continue warm compresses Continue abx
[2018-08-20] MEDS ORDERED: Lisinopril 5 MG Tablet PO ONE (11:28)
--- NOTE | 2018-08-20 15:08 | P.DS ---
Date of admission: 08/17/18 15:42 Primary care physician: [facility] Brief History from admission: This is a 68-year-old CM with a history of HTN, IDDM, and Chronic back pain who presents to the emergency department for evaluation of scrotal swelling and pain in for the past 4 days. Patient was seen by his PCP and Rx Levaquin for the cellulitis but reports worsening swelling since then. States that the swelling has worsened despite being on the antibiotics. Patient denies painful urination, hematuria, fever, chills, recent illness. Patient is a diabetic he is on insulin but reports that his last A1c was 8 over a year ago, he admits that he does not see his PCP regularly. Patient admits to snorting heroin last night, states that he uses street drugs regularly for pain control, denies IV drug use. DS: Diagnosis - Discharge Diagnosis (1) Cellulitis of scrotum Status: Acute DS: Medications - Discharge Medications Prescriptions: ferrous sulfate [FeroSul] 325 mg PO DAILY #30 tab DS: Summary Hospital Course: Patient was admitted, started on broad-spectrum antibiotics for scrotal cellulitis. Neurology evaluated the patient, deemed no surgical intervention. Infectious disease helped de-escalate antibiotics, patient was growing MRSA. Cellulitis improved. Patient has met maximal benefit from hospitalization is clinically stable for discharge with oral antibiotic. - Time Spent with Patient Total time spent providing and/or coordinating discharge services: Less than 30 minutes - Quality: VTE Deep Vein Thrombosis/Pulmonary Embolism Present on Admission: No Exam Vital signs: Vital Signs 08/19/18 16:00 08/19/18 20:00 08/20/18 00:00 Temperature 97.9 F 97.3 F L 97.7 F Pulse Rate 52 L 53 L 53 L Respiratory Rate 18 18 18 Blood Pressure 135/80 165/113 H 192/84 H Pulse Oximetry 97 96 96 08/20/18 01:05 08/20/18 04:00 08/20/18 05:45 Temperature 97.6 F Pulse Rate 54 L Respiratory Rate 18 Blood Pressure 148/78 H 161/77 H 152/80 H Pulse Oximetry 97 08/20/18 08:00 Temperature 97.5 F L Pulse Rate 56 L Respiratory Rate 18 Blood Pressure 184/84 H Pulse Oximetry 97 Intake & Output 08/19/18 08/20/18 08/20/18 18:59 06:59 18:59 Intake Total 515 / 515 420 / 420 515 / 515 Output Total 500 / 500 Balance 515 / 515 -80 / -80 515 / 515 Weight 72.3 kg Intake: IV 515 / 515 515 / 515 Vancomycin Inj 1,500 MG In NS 515 / 515 515 / 515 Inj 500 ML @ 250 mls/hr IV.SIG Q12H [facility] Rx#:[id number] Oral 420 / 420 Output: Urine 500 / 500 Other: Date of Last Bowel Movement 08/19/18 08/19/18 Narrative: Mild erythema over scrotum, scrotum is mildly tender to palpation Results Procedures completed during hospitalization: . Labs on day of discharge: Labs from last 24 hours 08/20/18 08/20/18 08/19/18 12:42 07:21 20:04 POC Glucose 405 H 222 H 339 H HSV I IgG Ab HSV II IgG 08/19/18 08/18/18 16:16 05:00 POC Glucose 214 H HSV I IgG Ab Positive HSV II IgG Negative Preliminary micro results at discharge 08/17/18 13:15 Aerobic Blood Culture - Preliminary Blood - Peripheral No growth in 3 days Anaerobic Blood Culture - Preliminary No growth in 3 days 08/17/18 13:30 Aerobic Blood Culture - Preliminary Blood - Peripheral No growth in 3 days Anaerobic Blood Culture - Preliminary No growth in 3 days - Impressions ITS Impressions Scrotum Ultrasound 08/17/18 13:01 CONCLUSION: 1. Both testicles are grossly within normal limits. 2. Small left epididymal cyst measuring 9 mm. 3. Small bilateral hydroceles. 4. Diffuse nonspecific edema versus thickening involving the scrotal wall of the scrotum. Abdomen/Pelvis CT 08/17/18 13:05 CONCLUSION: 1. Mild nonspecific infiltrate in the posterior left lower lung. 2. Tiny 2 mm nonobstructing stone upper pole left kidney. 3. No acute abdominal or pelvic pathology. Discharge Plan - Discharge Disposition Patient Disposition: Discharge Home - Discharge Condition Condition: Stable - Physicians Team Primary Care Provider: [facility] Attending Provider: Parish Haley Other Providers: Celestino Rivas DO ; Selena Strauss MD
[2018-08-20 16:50] VITALS: BP 191/85; PULSE 61; TEMP 97.9; O2SAT 97
--- NOTE | 2018-08-20 16:51 | P.PNID ---
Subjective Remarks: doing well afebrile less pain a nd swelling grew MRSA BS high, 344 Antibiotics: vanco Allergies/Adverse Reactions: Allergies amitriptyline Allergy (Severe, Verified 08/17/18 13:27) AMS cephalexin Allergy (Severe, Verified 08/17/18 13:27) HIVES penicillin G Allergy (Severe, Verified 08/17/18 13:27) LOC Objective Vital Signs 08/19/18 20:00 08/20/18 00:00 08/20/18 01:05 Temperature 97.3 F L 97.7 F Pulse Rate 53 L 53 L Respiratory Rate 18 18 Blood Pressure 165/113 H 192/84 H 148/78 H Pulse Oximetry 96 96 08/20/18 04:00 08/20/18 05:45 08/20/18 08:00 Temperature 97.6 F 97.5 F L Pulse Rate 54 L 56 L Respiratory Rate 18 18 Blood Pressure 161/77 H 152/80 H 184/84 H Pulse Oximetry 97 97 08/20/18 12:00 Temperature 98.1 F Pulse Rate 55 L Respiratory Rate 18 Blood Pressure 167/81 H Pulse Oximetry 98 Intake & Output 08/19/18 08/20/18 08/20/18 18:59 06:59 18:59 Intake Total 515 / 515 420 / 420 515 / 515 Output Total 500 / 500 Balance 515 / 515 -80 / -80 515 / 515 Weight 72.3 kg Intake: IV 515 / 515 515 / 515 Vancomycin Inj 1,500 MG In NS 515 / 515 515 / 515 Inj 500 ML @ 250 mls/hr IV.SIG Q12H [facility] Rx#:[id number] Oral 420 / 420 Output: Urine 500 / 500 Other: Date of Last Bowel Movement 08/19/18 08/19/18 08/17/18 13:15 Blood - Peripheral Aerobic Blood Culture - Preliminary No growth in 3 days 08/17/18 13:15 Blood - Peripheral Anaerobic Blood Culture - Preliminary No growth in 3 days 08/17/18 13:30 Blood - Peripheral Aerobic Blood Culture - Preliminary No growth in 3 days 08/17/18 13:30 Blood - Peripheral Anaerobic Blood Culture - Preliminary No growth in 3 days 08/17/18 13:30 Wound - Scrotum Gram Stain - Final 08/17/18 13:30 Wound - Scrotum Wound Culture - Final S. aureus MRSA Lab - Chemistry Results 08/18/18 08/19/18 08/19/18 19:20 03:55 07:10 Sodium Potassium Chloride Carbon Dioxide Anion Gap BUN Creatinine Estimated GFR POC Glucose 273 H 161 H 143 H Random Glucose Calcium 08/19/18 08/19/18 08/19/18 09:23 11:26 16:16 Sodium 138 Potassium 3.6 Chloride 100 Carbon Dioxide 32.1 H Anion Gap 6 BUN 7 Creatinine 0.63 Estimated GFR Greater than 89 POC Glucose 233 H 214 H Random Glucose 185 H D Calcium 8.6 08/19/18 08/20/18 08/20/18 20:04 07:21 12:42 Sodium Potassium Chloride Carbon Dioxide Anion Gap BUN Creatinine Estimated GFR POC Glucose 339 H 222 H 405 H Random Glucose Calcium 08/20/18 16:02 Sodium Potassium Chloride Carbon Dioxide Anion Gap BUN Creatinine Estimated GFR POC Glucose 344 H Random Glucose Calcium Imaging: ITS Impressions Scrotum Ultrasound 08/17/18 13:01 CONCLUSION: 1. Both testicles are grossly within normal limits. 2. Small left epididymal cyst measuring 9 mm. 3. Small bilateral hydroceles. 4. Diffuse nonspecific edema versus thickening involving the scrotal wall of the scrotum. Abdomen/Pelvis CT 08/17/18 13:05 CONCLUSION: 1. Mild nonspecific infiltrate in the posterior left lower lung. 2. Tiny 2 mm nonobstructing stone upper pole left kidney. 3. No acute abdominal or pelvic pathology. Physical Exam: GENERAL: NAD SKIN: Warm and dry. No rash EYES: Pupils equal and round. No scleral icterus. No injection or drainage. ENT: Mucous membranes pink and moist. RESPIRATORY: Breathing unlabored GASTROINTESTINAL: Abdomen soft, non-tender, nondistended. MUSCULOSKELETAL: Extremities without clubbing, cyanosis, or edema. : near complete resolution of edema and erytehma of scrotal skin R hemescrotum lesion is drying out, has minimal d/c NEUROLOGICAL: Awake and alert. No focal deficits. Normal speech. Assessment and Plan - Plan Scrotal cellulitis and small abscess, MRSA: much improved on IV vancomycin POorly controlled DM change vancomycin to doxycyline for another 7-10 days pt was instructed to avoid sun exposure OK to wa home dw Dr Haley
[2018-08-21] MEDS ORDERED: Pharmacy Ordered Lab Info OTHER ONE (03:45)
[2018-08-21] MEDS ORDERED: Lisinopril 10 MG Tablet PO SCH (09:00)
[2018-08-21 17:52] LABS: HSV 1 IgM by IFA NEGATIVE; HSV 2 IgM by IFA NEGATIVE
== END 2018-08-20 18:47 | disposition home or self-care (01) ==
LOC: NEPE 12:11 → NEDA 15:42 → N07 16:52
PROVIDERS: ADMIT Hospitalist; ATTEND Hospitalist